=== PATIENT | female | born 1950 | race Caucasian/White ===

== ENCOUNTER → 2016-11-22 | Outpatient (CLI) | payer OTHER, BC ==
[~2016-11-22] MED LIST: GLC850 PO; GLIM1TAB2 PO; KLN1 PO; LPT40 PO; PIOG1TAB23 PO; ROPI0.25 PO; SERT1TAB92 PO; [UNRECOGNIZED DRUG - OTHER] TOP
[2016-11-22 18:06] LABS: CHLORIDE 103 mmol/L (98-107); SODIUM 140 mmol/L (136-145)
[2016-11-22 18:26] LABS: RATIO 5.4 mcg/mg (0-30.0)
[2016-11-22 20:55] LABS: BLOOD UREA NITROGEN 16 mg/dl (7-18); CARBON DIOXIDE 26 mmol/L (21-32); CREATININE 0.92 mg/dl (0.60-1.20); GLUCOSE 200 mg/dl (70-99)
[2016-11-22 22:02] LABS: CALCIUM 9.8 mg/dl (8.5-10.1)
[2016-11-23 05:36] LABS: ESTIMATED AVERAGE GLUCOSE 183 mg/dl; HA1C FLAG Normal (Normal)
== END | disposition home or self-care (01) ==
LOC: C.LABMFLN 14:00
PROVIDERS: ATTEND Family Medicine
DX: E11.9 Type 2 diabetes mellitus without complications (principal)

== ENCOUNTER → 2016-11-26 | Outpatient (CLI) | payer OTHER, BC ==
--- NOTE | 2016-11-26 16:40 | MAMMOGRAPHY REPORT ---
BILATERAL DIGITAL SCREENING MAMMOGRAM WITH CAD: 11/26/2016 CLINICAL HISTORY: Routine screening. Patient has no complaints. TECHNIQUE: Bilateral CC and MLO views were obtained. Current study was also evaluated with a Compu ter Aided Detection (CAD) system. COMPARISON: Comparison is made to exams dated: 11/25/2014 mammogram - [facility], 03/08/2013 mammogram, 09/20/2011 mammogram, and 03/23/2009 mammogram - [facility] [place]. BREAST COMPOSITION: The tissue of both breasts is heterogeneously dense, which may obscure small ma sses. FINDINGS: There is a stable 14 mm circumscribed mass in the 9:00 anterior right breast, and a stable 7 mm circumscribed mass in the 7:00 middle one third of the left breast. Scattered bilateral benig n-appearing calcifications. No new suspicious mass, architectural distortion or cluster of microcal cifications is seen. IMPRESSION: ACR BI-RADS CATEGORY 1: NEGATIVE There is no mammographic evidence of malignancy. A 1 year screening mammogram is recommended. The p atient will receive written notification of the results. Approximately 10% of breast cancers are not detected with mammography. A negative mammographic repor t should not delay biopsy if a clinically suggestive mass is present. Yohana Matias M.D. ay/:11/26/2016 15:18:30 Data Integrity Specialist: Carmelita LEMON)(Amari), [facility] letter sent: Normal 1/2 BI-RADS Code: ACR BI-RADS Category 1: Negative
== END | disposition home or self-care (01) ==
LOC: C.MAMM 12:57
PROVIDERS: ATTEND Family Medicine
DX: Z12.31 Encounter for screening mammogram for malignant neoplasm of breast (principal)

== ENCOUNTER → 2017-02-17 | Outpatient (CLI) | payer OTHER, BC ==
[~2017-02-17] VITALS: Ht 167.6 cm; Wt 97.7 kg
[2017-02-17 15:04] VITALS: BP 133/75; PULSE 91; Ht 167.6 cm; Wt 97.7 kg
== END | disposition home or self-care (01) ==
LOC: C.NEUR 13:48
PROVIDERS: ATTEND Physician Assistant
DX: G47.33 Obstructive sleep apnea (adult) (pediatric) (principal)

== ENCOUNTER 2017-07-31 20:48 | Observation (INO) | payer OTHER, BC ==
[~2017-07-31] VITALS: Ht 167.6 cm; Wt 100.5 kg
[2017-07-31] MEDS ORDERED: KLN1X PO (22:25)
[2017-07-31] MEDS ORDERED: ZLF/100 PO (22:25)
[2017-07-31] MEDS ORDERED: MULT-513 PO (22:25)
[2017-07-31] MEDS ORDERED: OMEG10007 PO (22:25)
[2017-07-31] MEDS ORDERED: AMR2 PO (22:25)
[2017-07-31] MEDS ORDERED: GLIM2TAB2 PO (22:26)
[2017-07-31 22:49] LABS: BASO % 0.5 %; BASO ABS # 0.05 K/uL (0-0.2); EOS % 0.8 %; EOS ABS # 0.08 K/uL (0-0.5); HEMATOCRIT 38.6 % (37-47); HEMOGLOBIN 12.9 g/dL (12.0-16.0); IG# 0.02 K/uL (0.00-0.02); LYMPH % 17.2 %; LYMPH ABS # 1.68 K/uL (1.2-3.4); MEAN CELL VOLUME 88.5 fL (80-100); MEAN CORPUSCULAR HEMOGLOBIN 29.6 pg (25-34); MEAN CORPUSCULAR HGB CONC 33.4 g/dl (32-36); MEAN PLATELET VOLUME 8.7 fL (7.4-10.4); MONO % 5.9 %; MONO ABS # 0.58 K/uL (0.11-0.59); NEUT % 75.4 %; NEUT ABS # 7.38 K/uL (1.4-6.5); PLATELET COUNT 198 K/uL (130-400); RED CELL DISTRIBUTION WIDTH CV 13.9 % (11.5-14.5); RED CELL DISTRIBUTION WIDTH SD 45.2 fL (36.4-46.3); WHITE BLOOD COUNT 9.79 K/uL (4.8-10.8)
[2017-07-31 23:09] LABS: ALBUMIN 3.9 gm/dl (3.4-5.0); ALT/SGPT 40 U/L (12-78); BLOOD UREA NITROGEN 16 mg/dl (7-18); CALCIUM 9.4 mg/dl (8.5-10.1); CARBON DIOXIDE 27 mmol/L (21-32); CREATININE 0.84 mg/dl (0.60-1.20); GLUCOSE 221 mg/dl (70-99); POTASSIUM 3.6 mmol/L (3.5-5.1); SODIUM 137 mmol/L (136-145)
--- NOTE | 2017-07-31 23:09 | EMERGENCY ROOM VISIT NOTE ---
ED Visit Note First contact with patient: 21:57 I have seen and examined this patient with Jie Templeton and generally agree with the treatment plan as discussed. Problem List Medical Problems: (1) Depression Status: Chronic (2) Diabetes Status: Chronic Surgical Problems: (1) H/O arthroscopic knee surgery Status: Resolved Current/Historical Medications Scheduled Atorvastatin (Lipitor), 40 MG PO QPM Fish Oil ([place]-3), 1 CAP PO DAILY Glimepiride (Glimepiride), 2 MG PO QAM Metformin HCl (Metformin HCl), 850 MG PO BID Multivitamins/Minerals (Mvi With Minerals), 1 TAB PO DAILY Pioglitazone Hcl (Pioglitazone Hcl), 30 MG PO QAM Ropinirole (Requip), 0.25 MG PO HS Sertraline HCl (Sertraline HCl), 150 MG PO DAILY Scheduled PRN Clonazepam (Clonazepam), 1 MG PO BID PRN for Anxiety Allergies Coded Allergies: Adhesives (Unverified Adverse Reaction, Intermediate, RASH, 01/13/14) 'SENSITIVE SKIN' Vital Signs Date Time Temp Pulse Resp B/P (MAP) Pulse Ox O2 Delivery O2 Flow Rate FiO2 07/31/17 22:45 87 07/31/17 22:17 97 Nasal Cannula 2.0 07/31/17 22:17 97 Nasal Cannula 2.0 07/31/17 21:58 92 16 121/70 96 Room Air 07/31/17 20:54 36.7 86 22 119/87 93 Room Air Laboratory Results 07/31/17 22:35 Red Blood Count 4.36, Mean Corpuscular Volume 88.5, Mean Corpuscular Hemoglobin 29.6, Mean Corpuscular Hemoglobin Concent 33.4, Mean Platelet Volume 8.7, Neutrophils (%) (Auto) 75.4, Lymphocytes (%) (Auto) 17.2, Monocytes (%) (Auto) 5.9, Eosinophils (%) (Auto) 0.8, Basophils (%) (Auto) 0.5, Neutrophils # (Auto) 7.38, Lymphocytes # (Auto) 1.68, Monocytes # (Auto) 0.58, Eosinophils # (Auto) 0.08, Basophils # (Auto) 0.05 Test 07/31/17 22:02 07/31/17 22:15 07/31/17 22:35 07/31/17 22:43 Creatine Kinase MB Ratio (0-3.0) Urine Color YELLOW Urine Appearance CLEAR (CLEAR) Urine pH 5.0 (4.5-7.5) Urine Specific [place] 1.024 (1.000-1.030) Urine Protein NEG (NEG) Urine Glucose (UA) 2+ (NEG) Urine Ketones TRACE (NEG) Urine Occult Blood NEG (NEG) Urine Nitrite NEG (NEG) Urine Bilirubin NEG (NEG) Urine Urobilinogen NEG (NEG) Urine Leukocyte Esterase TRACE (NEG) Urine WBC (Auto) 1-5 /hpf (0-5) Urine RBC (Auto) 0-4 /hpf (0-4) Urine Hyaline Casts (Auto) 1-5 /lpf (0-5) Urine Epithelial Cells (Auto) 20-30 /lpf (0-5) Urine Bacteria (Auto) NEG (NEG) White Blood Count 9.79 K/uL (4.8-10.8) Red Blood Count 4.36 M/uL (4.2-5.4) Hemoglobin 12.9 g/dL (12.0-16.0) Hematocrit 38.6 % (37-47) Mean Corpuscular Volume 88.5 fL (80-100) Mean Corpuscular Hemoglobin 29.6 pg (25-34) Mean Corpuscular Hemoglobin Concent 33.4 g/dl (32-36) Platelet Count 198 K/uL (130-400) Mean Platelet Volume 8.7 fL (7.4-10.4) Neutrophils (%) (Auto) 75.4 % Lymphocytes (%) (Auto) 17.2 % Monocytes (%) (Auto) 5.9 % Eosinophils (%) (Auto) 0.8 % Basophils (%) (Auto) 0.5 % Neutrophils # (Auto) 7.38 K/uL (1.4-6.5) Lymphocytes # (Auto) 1.68 K/uL (1.2-3.4) Monocytes # (Auto) 0.58 K/uL (0.11-0.59) Eosinophils # (Auto) 0.08 K/uL (0-0.5) Basophils # (Auto) 0.05 K/uL (0-0.2) RDW Standard Deviation 45.2 fL (36.4-46.3) RDW Coefficient of Variation 13.9 % (11.5-14.5) Immature Granulocyte % (Auto) 0.2 % Immature Granulocyte # (Auto) 0.02 K/uL (0.00-0.02) Bedside Troponin I < 0.030 ng/ml (0-0.045) Departure Information Referrals Ebony Barbosa M.D. (PCP) Patient Instructions My [facility]
[2017-07-31 23:14] LABS: ALKALINE PHOSPHATASE 97 U/L (45-117); AST/SGOT 39 U/L (15-37); CKMB 1.3 ng/ml (0.5-3.6); TOTAL PROTEIN 7.3 gm/dl (6.4-8.2)
[2017-07-31] MEDS ORDERED: MAGNESIUM SULFATE 1GM / D5W 1 GM BAG IV STA (23:33)
[2017-08-01] MEDS ORDERED: KETOROLAC TROMETHAMINE 30 MG/ML VIAL IV STA (00:11)
[2017-08-01] MEDS ORDERED: GABAPENTIN 300 MG CAP PO ONE (01:10)
[2017-08-01] MEDS ORDERED: ACETAMINOPHEN 325 MG TAB PO PRN (01:15)
[2017-08-01] MEDS ORDERED: MAGNESIUM HYDROXIDE SUSP 30 ML UDC PO PRN (01:15)
[2017-08-01] MEDS ORDERED: POLYETHYLENE (MIRALAX) 17 GM PACK PO PRN (01:15)
[2017-08-01] MEDS ORDERED: ALUMINUM/MAGNESIUM/SIMETH (MAALOX MAX) 30 ML UDC PO PRN (01:15)
[2017-08-01] MEDS ORDERED: ONDANSETRON INJ 2 MG/ML 2 ML VIAL IV PRN (01:15)
[2017-08-01] MEDS ORDERED: GLUCOSE 10 TABS/TUBE PO PRN (01:30)
[2017-08-01] MEDS ORDERED: GLUCOSE 40% GEL 15 GM TUBE PO PRN (01:30)
[2017-08-01] MEDS ORDERED: DEXTROSE 50% 50 ML SYR IV PRN (01:30)
[2017-08-01] MEDS ORDERED: GLUCAGON FOR INJ 1 MG VIAL SQ PRN (01:30)
--- NOTE | 2017-08-01 03:35 | EMERGENCY ROOM VISIT NOTE ---
History First contact with patient: 21:57 Chief Complaint: BACK PAIN Stated Complaint: FALL/ R HIP PAIN History of Present Illness The patient is a 67 year old female who presents to the Emergency Room with complaints of low back pain that radiates down her leg behind her thigh and down to her foot after she slipped and fell in the kitchen. Patient states she feels quite weak. Patient states she slipped and fell. Patient complains of generalized weakness and inability to walk. No prior fracture to this hip. Patient denies chest pain, dyspnea, fever, chills, headache, neck pain, mid back pain, numbness, tingling. Patient states she is unable to ambulate. She describes the pain as aching, ranging in severity 8 out of 10 worse with movement and better with rest. EMS gave fentanyl 200 g IV Review of Systems See HPI for pertinent positives & negatives. A total of 10 systems reviewed and were otherwise negative. Past Medical/Surgical History Medical Problems: (1) Ambulatory dysfunction (2) Depression (3) Diabetes (4) Radiculopathy Surgical Problems: (1) H/O arthroscopic knee surgery Family History Cancer Diabetes mellitus Heart disease Hypertension Social History Smoking Status: Never Smoker Marital Status: Housing Status: lives with significant other Occupation Status: unemployed Current/Historical Medications Scheduled Atorvastatin (Lipitor), 40 MG PO QPM Fish Oil ([place]-3), 1 CAP PO DAILY Glimepiride (Glimepiride), 2 MG PO QAM Metformin HCl (Metformin HCl), 850 MG PO BID Multivitamins/Minerals (Mvi With Minerals), 1 TAB PO DAILY Pioglitazone Hcl (Pioglitazone Hcl), 30 MG PO QAM Ropinirole (Requip), 0.25 MG PO HS Sertraline HCl (Sertraline HCl), 150 MG PO DAILY Scheduled PRN Clonazepam (Clonazepam), 1 MG PO BID PRN for Anxiety Physical Exam Vital Signs Date Time Temp Pulse Resp B/P (MAP) Pulse Ox O2 Delivery O2 Flow Rate FiO2 08/01/17 02:25 77 16 139/66 98 08/01/17 01:28 84 15 137/74 96 Room Air 07/31/17 23:14 90 16 120/93 96 Nasal Cannula 2.0 07/31/17 22:45 87 07/31/17 22:17 97 Nasal Cannula 2.0 07/31/17 22:17 97 Nasal Cannula 2.0 07/31/17 21:58 92 16 121/70 96 Room Air 07/31/17 20:54 36.7 86 22 119/87 93 Room Air Physical Exam PHYSICAL EXAM: VITALS: Vitals are noted on the nurse's note and reviewed by myself. Vital signs stable. GENERAL: Pleasant female, in no acute distress, nondiaphoretic, well-developed well-nourished. SKIN: The skin was without obvious lacerations or abrasions. Capillary reflex less than 2 seconds. HEAD: Normocephalic atraumatic. EARS: External auditory canals clear, tympanic membranes pearly lovell without erythema or effusion bilaterally. No hemotympanums. No thornton sign. No mastoid tenderness. EYES: Pupils equal round and reactive to light and accommodation. Conjunctivae without injection, sclerae without icterus. Extraocular movements intact. NOSE: Patent, turbinates without inflammation or discharge. No sinus tenderness. No septal hematoma or bleeding. MOUTH: Mucous membranes moist. Pharynx without erythema or exudate. Uvula midline. Airway patent. Tongue does not deviate. NECK: Supple without nuchal rigidity. Cervical spine is nontender. Full range of motion of the neck without tenderness. No JVD. HEART: Regular rate and rhythm without murmurs gallops or rubs. LUNGS: Clear to auscultation bilaterally without wheezes, rales or rhonchi. No dullness to percussion. No retractions or accessory muscle use. No chest wall tenderness. ABDOMEN: Positive bowel sounds x 4. Normal tympanic percussion. Soft, nontender, without masses or organomegaly. No guarding or rebound tenderness. MUSCULOSKELETAL: No tenderness of the thoracic spine. Tender to palpation of the lumbar region. No tenderness with pelvic rocking. Full range of motion without tenderness to palpation in all extremities positive straight leg raise on the right. Strength 5/5 throughout. Right hamstring tender to palpation. NEURO: Patient was alert and oriented to person place and time. Normal sensation to light and sharp touch. +2 patellar reflexes bilaterally Cerebellar function intact. No focal neurological deficits. Medical Decision & Procedures Laboratory Results 07/31/17 22:35 Red Blood Count 4.36, Mean Corpuscular Volume 88.5, Mean Corpuscular Hemoglobin 29.6, Mean Corpuscular Hemoglobin Concent 33.4, Mean Platelet Volume 8.7, Neutrophils (%) (Auto) 75.4, Lymphocytes (%) (Auto) 17.2, Monocytes (%) (Auto) 5.9, Eosinophils (%) (Auto) 0.8, Basophils (%) (Auto) 0.5, Neutrophils # (Auto) 7.38, Lymphocytes # (Auto) 1.68, Monocytes # (Auto) 0.58, Eosinophils # (Auto) 0.08, Basophils # (Auto) 0.05 07/31/17 22:35 Test 07/31/17 22:15 07/31/17 22:35 07/31/17 22:43 Urine Color YELLOW Urine Appearance CLEAR (CLEAR) Urine pH 5.0 (4.5-7.5) Urine Specific [place] 1.024 (1.000-1.030) Urine Protein NEG (NEG) Urine Glucose (UA) 2+ (NEG) Urine Ketones TRACE (NEG) Urine Occult Blood NEG (NEG) Urine Nitrite NEG (NEG) Urine Bilirubin NEG (NEG) Urine Urobilinogen NEG (NEG) Urine Leukocyte Esterase TRACE (NEG) Urine WBC (Auto) 1-5 /hpf (0-5) Urine RBC (Auto) 0-4 /hpf (0-4) Urine Hyaline Casts (Auto) 1-5 /lpf (0-5) Urine Epithelial Cells (Auto) 20-30 /lpf (0-5) Urine Bacteria (Auto) NEG (NEG) White Blood Count 9.79 K/uL (4.8-10.8) Red Blood Count 4.36 M/uL (4.2-5.4) Hemoglobin 12.9 g/dL (12.0-16.0) Hematocrit 38.6 % (37-47) Mean Corpuscular Volume 88.5 fL (80-100) Mean Corpuscular Hemoglobin 29.6 pg (25-34) Mean Corpuscular Hemoglobin Concent 33.4 g/dl (32-36) Platelet Count 198 K/uL (130-400) Mean Platelet Volume 8.7 fL (7.4-10.4) Neutrophils (%) (Auto) 75.4 % Lymphocytes (%) (Auto) 17.2 % Monocytes (%) (Auto) 5.9 % Eosinophils (%) (Auto) 0.8 % Basophils (%) (Auto) 0.5 % Neutrophils # (Auto) 7.38 K/uL (1.4-6.5) Lymphocytes # (Auto) 1.68 K/uL (1.2-3.4) Monocytes # (Auto) 0.58 K/uL (0.11-0.59) Eosinophils # (Auto) 0.08 K/uL (0-0.5) Basophils # (Auto) 0.05 K/uL (0-0.2) RDW Standard Deviation 45.2 fL (36.4-46.3) RDW Coefficient of Variation 13.9 % (11.5-14.5) Immature Granulocyte % (Auto) 0.2 % Immature Granulocyte # (Auto) 0.02 K/uL (0.00-0.02) Anion Gap 6.0 mmol/L (3-11) Est Creatinine Clear Calc Drug Dose 77.1 ml/min Estimated GFR () 82.8 Estimated GFR (Non- 71.4 BUN/Creatinine Ratio 19.4 (10-20) Calcium Level 9.4 mg/dl (8.5-10.1) Magnesium Level 1.6 mg/dl (1.8-2.4) Total Bilirubin 0.7 mg/dl (0.2-1) Direct Bilirubin 0.2 mg/dl (0-0.2) Aspartate Amino Transf (AST/SGOT) 39 U/L (15-37) Alanine Aminotransferase (ALT/SGPT) 40 U/L (12-78) Alkaline Phosphatase 97 U/L (45-117) Total Creatine Kinase 140 U/L (26-192) Creatine Kinase MB 1.3 ng/ml (0.5-3.6) Creatine Kinase MB Ratio 0.9 (0-3.0) Troponin I < 0.015 ng/ml (0-0.045) Total Protein 7.3 gm/dl (6.4-8.2) Albumin 3.9 gm/dl (3.4-5.0) Bedside Troponin I < 0.030 ng/ml (0-0.045) Medications Administered Medications (Trade) Dose Ordered Sig/Deb Route Start Time Stop Time Status Last Admin Dose Admin Magnesium Sulfate (Magnesium Sulfate) 2 gm NOW STAT IV 07/31/17 23:33 07/31/17 23:34 DC 07/31/17 23:47 2 GM Ketorolac Tromethamine (Toradol Inj) 30 mg NOW STAT IV 08/01/17 00:11 08/01/17 00:13 DC 08/01/17 00:19 30 MG ED Course Prior records/ancillary studies reviewed. Triage Nursing notes reviewed. Additional history obtained from family The patient's history was concerning for back pain. Differential diagnosis: Etiologies such as musculoskeletal, disc herniation, fracture, aortic disease, metastatic disease, cord compression, discitis, infection, renal colic, gastrointestinal, acute exacerbation of chronic back pain, sciatica, cauda equina, as well as others were entertained. Physical findings: As above. Patient is unable to bear weight on the leg ER treatment provided: Toradol On reassessment the patient felt better. Diagnostics interpreted by me: EKG: Normal sinus, normal intervals, no acute ST-T wave changes. Impression normal sinus rhythm interpreted by myself The labs revealed hyperglycemia without DKA Imaging studies: Head CT negative for intracranial bleed per radiology C and L-spine negative for fracture per radiology Consultation: A consultation was placed with [facility], Dr. Karimi. The case was discussed and diagnostics were reviewed. Patient will be evaluated for further evaluation and treatment. This appears to be consistent with intractable low back pain. Patient no acute fracture on CT imaging. Patient was still in severe amount of pain. She was unable to ambulate. She has a history of opiate abuse and does not want narcotics. She will be evaluated by medicine for possible admission. By the evaluation outlined above emergent etiologies such as fracture, aortic disease, metastatic disease, infection, renal colic, gastrointestinal, cord compression, cauda equina, as well as others were deemed relatively unlikely. The pt informed about the findings as listed above. All questions were answered and pleased with the treatment. Case reviewed with my attending Medical Decision as above Medication Reconcilliation Current Medication List: was personally reviewed by me Blood Pressure Screening Patient's blood pressure: Normal blood pressure Impression Primary Impression: Intractable low back pain Additional Impressions: Fall Hyperglycemia Departure Information Dispostion Being Evaluated By Hospitalist Condition GOOD Referrals Ebony Barbosa M.D. (PCP) Patient Instructions My [facility] Problem Qualifiers
[2017-08-01 05:00] VITALS: BP 136/78; PULSE 72; TEMP 36.4; O2SAT 97; Ht 167.6 cm; Wt 100.5 kg
[2017-08-01] MEDS ORDERED: IV FLUIDS COMPLETED PRN (05:30)
--- NOTE | 2017-08-01 06:27 | History and Physical ---
History & Physical Date & Time of Service: Aug 01, 2017 at 06:25 Chief Complaint: Ambulatory Dysfunction, Radiculopathy Primary Care Physician: Ebony Barbosa M.D. History of Present Illness Source: patient, hospital records This is a 67 yo f with a h/o opioid dependence that presents to us after a mechanical fall resulting in ambulatory dysfunction. She says she was in her kitchen when her legs split and she fell onto her right bottom. Immediately she had 10/10 pain that radiated from the right buttocks to the right posterior knee. She states "its like spasming every time I try to move or walk, I can't walk." She is unable to sit up because of the pain worsening. She also noted "spiky pain that is patchy but mostly on the front of my thigh and can go down to my ankle." She has been completely unable to ambulate and the does not feel it is safe to take her home at this time. The patient is very hesitant to try a lot of medications as well for the back pain because of history of opioid dependence. Denies any numbness/ weakness in lower extremity only pain. Past Medical/Surgical History Diabetes Depression Opioid dependence OA/ DDD Family History Cancer Diabetes mellitus Heart disease Hypertension Social History Smoking Status: Never Smoker Smokeless Tobacco Use: No Alcohol Use: none Drug Use: none Marital Status: Housing status: lives with family Occupational Status: unemployed Immunizations History of Influenza Vaccine: Yes History of Tetanus Vaccine?: Yes History of Pneumococcal: No History of Hepatitis B Vaccine: No Multi-Drug Resistant Organisms History of MDRO: No Allergies Coded Allergies: Adhesives (Unverified Adverse Reaction, Intermediate, RASH, 01/13/14) 'SENSITIVE SKIN' Home Medications Scheduled Atorvastatin (Lipitor), 40 MG PO QPM Fish Oil (Elmer-3), 1 CAP PO DAILY Glimepiride (Glimepiride), 2 MG PO QAM Metformin HCl (Metformin HCl), 850 MG PO BID Multivitamins/Minerals (Mvi With Minerals), 1 TAB PO DAILY Pioglitazone Hcl (Pioglitazone Hcl), 30 MG PO QAM Ropinirole (Requip), 0.25 MG PO HS Sertraline HCl (Sertraline HCl), 150 MG PO DAILY Scheduled PRN Clonazepam (Clonazepam), 1 MG PO BID PRN for Anxiety Review of Systems Constitutional: No fever, No chills, No sweats Eyes: No worsening of vision ENT: No hearing loss Respiratory: No cough, No sputum, No wheezing, No shortness of breath, No dyspnea on exertion, No dyspnea at rest Cardiovascular: No chest pain Abdomen: No pain, No nausea, No vomiting, No diarrhea, No constipation Musculoskeletal: + joint pain, + muscle pain Genitourinary - Female: No dysuria, No hematuria Neurologic: + balance problems, No weakness, No numbness/tingling Psychiatric: + anxiety, No depression symptoms Endocrine: No fatigue Hematologic / Lymphatic: No abnormal bleeding/bruising Integumentary: No rash Physical Exam Vital Signs Date Time Temp Pulse Resp B/P (MAP) Pulse Ox O2 Delivery O2 Flow Rate FiO2 08/01/17 02:25 77 16 139/66 98 08/01/17 01:28 84 15 137/74 96 Room Air 07/31/17 23:14 90 16 120/93 96 Nasal Cannula 2.0 07/31/17 22:45 87 07/31/17 22:17 97 Nasal Cannula 2.0 07/31/17 22:17 97 Nasal Cannula 2.0 07/31/17 21:58 92 16 121/70 96 Room Air 07/31/17 20:54 36.7 86 22 119/87 93 Room Air General Appearance: + mild distress Head: normocephalic, atraumatic Eyes: normal inspection ENT: normal ENT inspection Neck: supple Respiratory/Chest: normal breath sounds, no respiratory distress, no accessory muscle use Cardiovascular: regular rate, rhythm, no murmur, normal peripheral pulses Abdomen/GI: normal bowel sounds, non tender, soft Back: normal inspection, no CVA tenderness, normal range of motion, + pertinent finding (no spinal tenderness) Extremities/Musculoskelatal: normal inspection, no calf tenderness, no pedal edema, + pertinent finding (4/5 motor strength in right leg compared to the left , neurovascularly intact bilat, sensation equal in bilat le, straight leg positive on right LE, DTR +2 on right patellar and left) Neurologic/Psych: no motor/sensory deficits, alert, normal mood/affect, normal reflexes, oriented x 3 Skin: normal color, warm/dry, no rash Lymphatic: no adenopathy Diagnostics Laboratory Results Results Past 24 Hours Test 07/31/17 22:15 07/31/17 22:35 1/25/18 22:43 Range/Units Urine Color YELLOW Urine Appearance CLEAR CLEAR Urine pH 5.0 4.5-7.5 Urine Specific [place] 1.024 1.000-1.030 Urine Protein NEG NEG Urine Glucose (UA) 2+ NEG Urine Ketones TRACE NEG Urine Occult Blood NEG NEG Urine Nitrite NEG NEG Urine Bilirubin NEG NEG Urine Urobilinogen NEG NEG Urine Leukocyte Esterase TRACE NEG Urine WBC (Auto) 1-5 0-5 /hpf Urine RBC (Auto) 0-4 0-4 /hpf Urine Hyaline Casts (Auto) 1-5 0-5 /lpf Urine Epithelial Cells (Auto) 20-30 0-5 /lpf Urine Bacteria (Auto) NEG NEG White Blood Count 9.79 4.8-10.8 K/uL Red Blood Count 4.36 4.2-5.4 M/uL Hemoglobin 12.9 12.0-16.0 g/dL Hematocrit 38.6 37-47 % Mean Corpuscular Volume 88.5 80-100 fL Mean Corpuscular Hemoglobin 29.6 25-34 pg Mean Corpuscular Hemoglobin Concent 33.4 32-36 g/dl Platelet Count 198 130-400 K/uL Mean Platelet Volume 8.7 7.4-10.4 fL Neutrophils (%) (Auto) 75.4 % Lymphocytes (%) (Auto) 17.2 % Monocytes (%) (Auto) 5.9 % Eosinophils (%) (Auto) 0.8 % Basophils (%) (Auto) 0.5 % Neutrophils # (Auto) 7.38 1.4-6.5 K/uL Lymphocytes # (Auto) 1.68 1.2-3.4 K/uL Monocytes # (Auto) 0.58 0.11-0.59 K/uL Eosinophils # (Auto) 0.08 0-0.5 K/uL Basophils # (Auto) 0.05 0-0.2 K/uL RDW Standard Deviation 45.2 36.4-46.3 fL RDW Coefficient of Variation 13.9 11.5-14.5 % Immature Granulocyte % (Auto) 0.2 % Immature Granulocyte # (Auto) 0.02 0.00-0.02 K/uL Sodium Level 137 136-145 mmol/L Potassium Level 3.6 3.5-5.1 mmol/L Chloride Level 104 98-107 mmol/L Carbon Dioxide Level 27 21-32 mmol/L Anion Gap 6.0 3-11 mmol/L Blood Urea Nitrogen 16 7-18 mg/dl Creatinine 0.84 0.60-1.20 mg/dl Est Creatinine Clear Calc Drug Dose 77.1 ml/min Estimated GFR () 82.8 Estimated GFR (Non- 71.4 BUN/Creatinine Ratio 19.4 10-20 Random Glucose 221 70-99 mg/dl Calcium Level 9.4 8.5-10.1 mg/dl Magnesium Level 1.6 1.8-2.4 mg/dl Total Bilirubin 0.7 0.2-1 mg/dl Direct Bilirubin 0.2 0-0.2 mg/dl Aspartate Amino Transf (AST/SGOT) 39 15-37 U/L Alanine Aminotransferase (ALT/SGPT) 40 12-78 U/L Alkaline Phosphatase 97 45-117 U/L Total Creatine Kinase 140 26-192 U/L Creatine Kinase MB 1.3 0.5-3.6 ng/ml Creatine Kinase MB Ratio 0.9 0-3.0 Troponin I < 0.015 0-0.045 ng/ml Total Protein 7.3 6.4-8.2 gm/dl Albumin 3.9 3.4-5.0 gm/dl Bedside Troponin I < 0.030 0-0.045 ng/ml Diagnostic Radiology CT SCAN OF THE CERVICAL SPINE CLINICAL HISTORY: Fall. COMPARISON STUDY: No priors. TECHNIQUE: CT scan of the cervical spine is performed from the skull base to the upper thoracic spine. Images are reviewed in the axial, sagittal, and coronal planes. IV contrast was not administered for this examination. A dose lowering technique was utilized adhering to the principles of ALARA. CT DOSE: 1080.86 mGy.cm FINDINGS: Skeletal structures: The skeletal structures are osteopenic. There is no evidence of fracture or subluxation involving the cervical spine. Vertebral body height is maintained. There is minimal anterolisthesis at C3-C4 and C4-C5. Alignment is otherwise preserved. There is straightening of the cervical lordosis with mild reversal centered at C4-C5. Anterior osteophytes are seen in the lower cervical region. There is bony fusion of the posterior elements on the left at C2-C3. The odontoid process and lateral masses are intact. The atlantoaxial articulation is preserved noting productive degenerative change. The spinous processes appear intact. There is moderate multilevel cervical spondylosis. Uncovertebral and facet arthropathy contribute to neural foraminal narrowing at several levels. Postoperative change is noted in the left mandibular condyle. Intervertebral discs: There is moderate to advanced disc space narrowing at C5-C6 and C6-C7. Mild narrowing is seen at the remaining cervical levels. Central canal: Posterior disc osteophyte complexes at C5-C6 and C6-C7 likely contribute to acquired compromise the central canal. Soft tissues: The prevertebral and paraspinous soft tissues are within normal limits. Calvarium: The visualized calvarium at the skull base appears intact. Brain parenchyma: Partially visualized brain parenchyma the skull base is within normal limits. Sinuses and mastoids: Fluid is noted within the sphenoid sinuses. The maxillary antra are clear as imaged. The mastoid air cells are well pneumatized. Lung apices: Clear as visualized. IMPRESSION: 1. There is no evidence of fracture or subluxation involving the cervical spine. 2. Osteopenia and spondylotic change as above. [~ rep ct add3]] LUMBAR SPINE WITHOUT CLINICAL HISTORY: Fall. Low back pain radiating to right lower extremity. COMPARISON STUDY: No previous studies for comparison. FINDINGS: Alignment of the lumbar spine is anatomic. There is mild loss of height of the anterior aspect of the superior endplates of L2, L3 and L4 which is chronic. No acute fractures identified. Paravertebral soft tissues are unremarkable. Central canal and neural foramen are suboptimally assessed by CT. There are multilevel disc bulges with ligamentous hypertrophy and facet arthrosis. There is no severe central canal stenosis. There is suspected mild to moderate multilevel central canal stenosis as well as neural foraminal stenosis. IMPRESSION: 1. No acute lumbar spine fracture or subluxation. 2. Mild loss of height of the anterior superior endplates of L2, L3 and L4 which is chronic. 3. [id number] multilevel degenerative disc disease and facet arthrosis, as described above. Multilevel disc bulges with suspected central disc protrusions. EKG Normal sinus rhythm Normal ECG When compared with ECG of 27-DEC-2013 12:25, No significant change was found HR 87 Impression Assessment and Plan This is a 67 yo f that presents to us with radicular pain and ambulatory dysfunction in the presence of DDD and a recent mechanical fall Radiculopathy secondary to DDD and recent fall resulting in ambulatory dysfunction - med surg admission - pain control with alternative agents such as tylenol or Toradol - trial of Gabapentin however patient refused - Baclofen tid - pt/ot - considered steroids however patient hyperglycemic at time of assessment, based on reassessment in am could be reconsidered - no acute reason for MRI at this time, will defer to day team during patient's reassessment DMII - insulin ISS - metformin held - glimepiride and pioglitazone cont'd H/o Opioid dependence - avoidance of narcotics for pain control Anxiety - clonazepam and sertraline cont'd DVT Prophylaxis scd full code Attending addendum: I have physically seen this patient, have supervised the medical residents activities, and agree with the H&P unless as otherwise noted. Assessment and Plan: Right lower extremity radiculopathy/lumbar degenerative disc disease/ambulatory dysfunction-- Observe on medical surgical floor Pain management with Tylenol orally and or Toradol IV Baclofen 10 mg by mouth 3 times a day when necessary muscle spasm Patient refused trial of gabapentin at bedtime Consult PT/OT/social work administrator With history of opioid dependence, patient is not to receive narcotics for this type of pain. K- Pad to use when necessary Diabetes mellitus-- Hold metformin and pioglitazone Continue glimepiride Place on Accu-Cheks before meals and at bedtime with NovoLog coverage per scale Anxiety-- Continue clonazepam and sertraline. Level of Care Med/Surg Advanced Directives Existing Advance Directive: No Existing Living Will: No Existing Power of Uc Architect: No Resuscitation Status FULL RESUSCITATION VTE Prophylaxis VTE Risk Assessment Done? Y/N: Yes Risk Level: Moderate Given or contraindicated: SCD's Social Service Consult None Apply Additional Copies To Ebony Barbosa M.D.
--- NOTE | 2017-08-01 06:41 | DIAGNOSTIC IMAGING REPORT ---
LUMBAR SPINE WITHOUT CLINICAL HISTORY: Fall. Low back pain radiating to right lower extremity. COMPARISON STUDY: No previous studies for comparison. FINDINGS: Alignment of the lumbar spine is anatomic. There is mild loss of height of the anterior aspect of the superior endplates of L2, L3 and L4 which is chronic. No acute fractures identified. Paravertebral soft tissues are unremarkable. Central canal and neural foramen are suboptimally assessed by CT. There are multilevel disc bulges with ligamentous hypertrophy and facet arthrosis. There is no severe central canal stenosis. There is suspected mild to moderate multilevel central canal stenosis as well as neural foraminal stenosis. IMPRESSION: 1. No acute lumbar spine fracture or subluxation. 2. Mild loss of height of the anterior superior endplates of L2, L3 and L4 which is chronic. 3. [id number] multilevel degenerative disc disease and facet arthrosis, as described above. Multilevel disc bulges with suspected central disc protrusions. Electronically signed by: Terrance Gresham M.D. 08/01/2017 6:39 AM Dictated Date/Time: 08/01/2017 6:34 AM
--- NOTE | 2017-08-01 06:59 | DIAGNOSTIC IMAGING REPORT ---
HEAD WITHOUT CONTRAST (CT) CT DOSE: HISTORY: Trauma fall TECHNIQUE: Multiaxial CT images of the head were performed without the use of intravenous contrast. A dose lowering technique was utilized adhering to the principles of ALARA. Comparison: None. Findings: The paranasal sinuses and mastoid air cells are clear. The calvarium and skull base are intact. The ventricles and sulci are within normal limits. There is no mass, hematoma, midline shift, or acute infarct. Impression: No acute intracranial abnormality. The above report was generated using voice recognition software. It may contain grammatical, syntax or spelling errors. Electronically signed by: Pavel Sepulveda M.D. 08/01/2017 6:58 AM Dictated Date/Time: 08/01/2017 6:56 AM
--- NOTE | 2017-08-01 07:12 | DIAGNOSTIC IMAGING REPORT ---
CT SCAN OF THE CERVICAL SPINE CLINICAL HISTORY: Fall. COMPARISON STUDY: No priors. TECHNIQUE: CT scan of the cervical spine is performed from the skull base to the upper thoracic spine. Images are reviewed in the axial, sagittal, and coronal planes. IV contrast was not administered for this examination. A dose lowering technique was utilized adhering to the principles of ALARA. CT DOSE: 1080.86 mGy.cm FINDINGS: Skeletal structures: The skeletal structures are osteopenic. There is no evidence of fracture or subluxation involving the cervical spine. Vertebral body height is maintained. There is minimal anterolisthesis at C3-C4 and C4-C5. Alignment is otherwise preserved. There is straightening of the cervical lordosis with mild reversal centered at C4-C5. Anterior osteophytes are seen in the lower cervical region. There is bony fusion of the posterior elements on the left at C2-C3. The odontoid process and lateral masses are intact. The atlantoaxial articulation is preserved noting productive degenerative change. The spinous processes appear intact. There is moderate multilevel cervical spondylosis. Uncovertebral and facet arthropathy contribute to neural foraminal narrowing at several levels. Postoperative change is noted in the left mandibular condyle. Intervertebral discs: There is moderate to advanced disc space narrowing at C5-C6 and C6-C7. Mild narrowing is seen at the remaining cervical levels. Central canal: Posterior disc osteophyte complexes at C5-C6 and C6-C7 likely contribute to acquired compromise the central canal. Soft tissues: The prevertebral and paraspinous soft tissues are within normal limits. Calvarium: The visualized calvarium at the skull base appears intact. Brain parenchyma: Partially visualized brain parenchyma the skull base is within normal limits. Sinuses and mastoids: Fluid is noted within the sphenoid sinuses. The maxillary antra are clear as imaged. The mastoid air cells are well pneumatized. Lung apices: Clear as visualized. IMPRESSION: 1. There is no evidence of fracture or subluxation involving the cervical spine. 2. Osteopenia and spondylotic change as above. Electronically signed by: Jason Martinez M.D. 08/01/2017 7:10 AM Dictated Date/Time: 08/01/2017 7:07 AM
--- NOTE | 2017-08-01 07:36 | DIAGNOSTIC IMAGING REPORT ---
SINGLE VIEW CHEST CLINICAL HISTORY: Fall. Weakness. FINDINGS: An AP, portable, upright chest radiograph is compared to study dated 12/27/2013. The examination is degraded by portable technique and patient rotation. The heart is mildly enlarged and there is atherosclerotic calcification of the thoracic aorta. There is mild elevation of the right hemidiaphragm and bibasilar atelectasis. No airspace consolidation is seen typical for pneumonia and there is no large pleural effusion. No pneumothorax is seen. The skeletal structures are osteopenic. The bony thorax is grossly intact. Cholecystectomy clips are noted in the right upper quadrant. IMPRESSION: Mild cardiac enlargement with no acute cardiopulmonary abnormality. Electronically signed by: Jason Martinez M.D. 08/01/2017 7:35 AM Dictated Date/Time: 08/01/2017 7:34 AM
[2017-08-01 07:40] VITALS: BP 132/81; PULSE 88; TEMP 36.7; O2SAT 96
[2017-08-01] MEDS: BACLOFEN TAB 20 MG TAB PO SCH ×3 (08:02→21:29)
[2017-08-01] MEDS: SERTRALINE HCL 100 MG TAB PO SCH (08:02)
[2017-08-01] MEDS: DICLOFENAC SOD 1% GEL 100 GM TUBE EXT SCH ×4 (08:02→21:27)
[2017-08-01] MEDS: PIOGLITAZONE TAB 15 MG TAB PO SCH (08:02)
[2017-08-01] MEDS: CEROVITE ADV FORMULA TAB PO SCH (08:03)
[2017-08-01] MEDS: GLIMEPIRIDE 2 MG TAB PO SCH (08:03)
[2017-08-01] MEDS: OMEGA-3 (PURIFIED FISH OIL) 1 GM CAP PO SCH (08:03)
[2017-08-01] MEDS: INSULIN ASPART 100 UNITS/ML 3 ML PEN SC SCH ×4 (08:06→21:36)
[2017-08-01] MEDS: KETOROLAC TROMETHAMINE 15 MG/ML VIAL IV. PRN ×2 (08:08→14:25)
[2017-08-01 12:04] VITALS: BP 127/80; PULSE 79; O2SAT 95
[2017-08-01 15:19] VITALS: BP 126/82; PULSE 79; TEMP 37.1; O2SAT 92
[2017-08-01] MEDS ORDERED: KETOROLAC TROMETHAMINE 15 MG/ML VIAL IV. SCH (18:45)
--- NOTE | 2017-08-01 18:49 | Family Medicine Progress Note ---
Progress Note Date of Service Aug 01, 2017. Subjective Pt evaluation today including: conversation w/ patient, physical exam, chart review, lab review Pain: this AM pt reports pain in R buttocks region radiating down posterior R leg PO Intake: tolerating Voiding: no voiding problems This AM pt reports being in kitchen and doing a split on wet kitchen floor after which she had difficulty walking/moving due to severe pain in her R buttocks region. Pain is described as muscle spasm like and radiating behind R thigh to knee. Also has chronic shooting pain from knee to ankle from nerves post knee surgery in 2015. Constitutional: No fever, No chills Respiratory: No shortness of breath Cardiovascular: No chest pain Abdomen: No pain, No nausea, No vomiting Musculoskeletal: + muscle pain Female : No dysuria Medications Current Inpatient Medications Medications (Trade) Dose Ordered Sig/Deb Route Start Time Stop Time Status Last Admin Dose Admin Acetaminophen (Tylenol Tab) 650 mg Q4H PRN PO 08/01/17 01:15 08/31/17 01:14 Al Hydrox/Mg Hydrox/Simethicone (Maalox Max Susp) 15 ml Q4H PRN PO 08/01/17 01:15 08/31/17 01:14 Magnesium Hydroxide (Milk Of Magnesia Susp) 30 ml Q6H PRN PO 08/01/17 01:15 08/31/17 01:14 Polyethylene (Miralax Powder Packet) 17 gm DAILY PRN PO 08/01/17 01:15 08/31/17 01:14 Ondansetron HCl (Zofran Inj) 4 mg Q6H PRN IV 08/01/17 01:15 08/31/17 01:14 Insulin Aspart (novoLOG ASPART) SLIDING SCALE G... ACHS SC 08/01/17 06:30 08/31/17 06:59 08/01/17 17:28 2 UNITS Atorvastatin Calcium (Lipitor Tab) 40 mg QPM PO 08/01/17 21:00 08/31/17 20:59 Clonazepam (Klonopin Tab) 1 mg BID PRN PO 08/01/17 01:15 08/31/17 01:14 Fish Oil ([place]-3 (Purified Fish Oil) Cap) 1 gm DAILY PO 08/01/17 09:00 08/31/17 08:59 08/01/17 08:03 1 GM Glimepiride (Amaryl Tab) 2 mg QAM PO 08/01/17 09:00 08/31/17 08:59 08/01/17 08:03 2 MG Multivitamins/ Minerals (Multivitamin W/ Minerals Tab) 1 tab DAILY PO 08/01/17 09:00 08/31/17 08:59 08/01/17 08:03 1 TAB Ropinirole HCl (Requip Tab) 0.25 mg HS PO 08/01/17 21:00 08/31/17 20:59 Sertraline HCl (Zoloft Tab) 150 mg DAILY PO 08/01/17 09:00 08/31/17 08:59 08/01/17 08:02 150 MG Pioglitazone HCl (ACTos TAB) 30 mg QAM PO 08/01/17 09:00 08/31/17 08:59 08/01/17 08:02 30 MG Gabapentin (Neurontin Cap) 300 mg HS PO 08/01/17 21:00 08/31/17 20:59 Baclofen (Lioresal Tab) 10 mg TID PO 08/01/17 09:00 08/31/17 08:59 08/01/17 14:21 10 MG Ketorolac Tromethamine (Toradol Inj) 15 mg Q6H PRN IV. 08/01/17 01:15 08/06/17 01:14 08/01/17 14:25 15 MG Glucose (Glucose 40% Gel) 15-30 GRAMS 15 GRAMS... UD PRN PO 08/01/17 01:30 08/31/17 01:29 Glucose (Glucose Chew Tab) 4-8 Tablets 4 Tabl... UD PRN PO 08/01/17 01:30 08/31/17 01:29 Dextrose (Dextrose 50% 50ML Syringe) 25-50ML OF 50% DW IV FOR... UD PRN IV 08/01/17 01:30 08/31/17 01:29 Glucagon (Glucagon Inj) 1 mg UD PRN SQ 08/01/17 01:30 08/31/17 01:29 Miscellaneous (Iv Fluids Completed) 1 ea PRN PRN N/A 08/01/17 05:30 08/01/18 05:29 Diclofenac Sodium (Voltaren 1% Top Gel) 1 appln QID EXT 08/01/17 09:00 08/31/17 08:59 08/01/17 17:28 1 APPLN Objective Vital Signs Date Time Temp Pulse Resp B/P (MAP) Pulse Ox O2 Delivery O2 Flow Rate FiO2 08/01/17 16:05 Room Air 08/01/17 15:19 37.1 79 16 126/82 (97) 92 08/01/17 12:04 79 95 08/01/17 08:30 Room Air 08/01/17 07:40 36.7 88 16 132/81 (98) 96 2.0 08/01/17 05:00 36.4 72 16 136/78 97 Room Air 08/01/17 02:25 77 16 139/66 98 08/01/17 01:28 84 15 137/74 96 Room Air 07/31/17 23:14 90 16 120/93 96 Nasal Cannula 2.0 07/31/17 22:45 87 07/31/17 22:17 97 Nasal Cannula 2.0 07/31/17 22:17 97 Nasal Cannula 2.0 07/31/17 21:58 92 16 121/70 96 Room Air 07/31/17 20:54 36.7 86 22 119/87 93 Room Air Physical Exam General Appearance: no apparent distress Eyes: normal inspection, sclerae normal Respiratory/Chest: lungs clear, normal breath sounds Cardiovascular: regular rate, rhythm, no murmur Abdomen: normal bowel sounds, non tender, soft Extremities: non-tender, normal inspection, no pedal edema Neurologic/Psychiatric: piece work checker II-XII nml as tested, no motor/sensory deficits, alert, oriented x 3, + pertinent finding (pt guarding on R LE neurologic testing but has intact sensation/strength and 2+ knee DTR) Skin: warm/dry Laboratory Results 07/31/17 22:35 Red Blood Count 4.36, Mean Corpuscular Volume 88.5, Mean Corpuscular Hemoglobin 29.6, Mean Corpuscular Hemoglobin Concent 33.4, Mean Platelet Volume 8.7, Neutrophils (%) (Auto) 75.4, Lymphocytes (%) (Auto) 17.2, Monocytes (%) (Auto) 5.9, Eosinophils (%) (Auto) 0.8, Basophils (%) (Auto) 0.5, Neutrophils # (Auto) 7.38, Lymphocytes # (Auto) 1.68, Monocytes # (Auto) 0.58, Eosinophils # (Auto) 0.08, Basophils # (Auto) 0.05 07/31/17 22:35 Test 07/31/17 22:15 07/31/17 22:35 07/31/17 22:43 08/01/17 16:26 Urine Color YELLOW Urine Appearance CLEAR (CLEAR) Urine pH 5.0 (4.5-7.5) Urine Specific [place] 1.024 (1.000-1.030) Urine Protein NEG (NEG) Urine Glucose (UA) 2+ (NEG) Urine Ketones TRACE (NEG) Urine Occult Blood NEG (NEG) Urine Nitrite NEG (NEG) Urine Bilirubin NEG (NEG) Urine Urobilinogen NEG (NEG) Urine Leukocyte Esterase TRACE (NEG) Urine WBC (Auto) 1-5 /hpf (0-5) Urine RBC (Auto) 0-4 /hpf (0-4) Urine Hyaline Casts (Auto) 1-5 /lpf (0-5) Urine Epithelial Cells (Auto) 20-30 /lpf (0-5) Urine Bacteria (Auto) NEG (NEG) White Blood Count 9.79 K/uL (4.8-10.8) Red Blood Count 4.36 M/uL (4.2-5.4) Hemoglobin 12.9 g/dL (12.0-16.0) Hematocrit 38.6 % (37-47) Mean Corpuscular Volume 88.5 fL (80-100) Mean Corpuscular Hemoglobin 29.6 pg (25-34) Mean Corpuscular Hemoglobin Concent 33.4 g/dl (32-36) Platelet Count 198 K/uL (130-400) Mean Platelet Volume 8.7 fL (7.4-10.4) Neutrophils (%) (Auto) 75.4 % Lymphocytes (%) (Auto) 17.2 % Monocytes (%) (Auto) 5.9 % Eosinophils (%) (Auto) 0.8 % Basophils (%) (Auto) 0.5 % Neutrophils # (Auto) 7.38 K/uL (1.4-6.5) Lymphocytes # (Auto) 1.68 K/uL (1.2-3.4) Monocytes # (Auto) 0.58 K/uL (0.11-0.59) Eosinophils # (Auto) 0.08 K/uL (0-0.5) Basophils # (Auto) 0.05 K/uL (0-0.2) RDW Standard Deviation 45.2 fL (36.4-46.3) RDW Coefficient of Variation 13.9 % (11.5-14.5) Immature Granulocyte % (Auto) 0.2 % Immature Granulocyte # (Auto) 0.02 K/uL (0.00-0.02) Anion Gap 6.0 mmol/L (3-11) Est Creatinine Clear Calc Drug Dose 77.1 ml/min Estimated GFR () 82.8 Estimated GFR (Non- 71.4 BUN/Creatinine Ratio 19.4 (10-20) Calcium Level 9.4 mg/dl (8.5-10.1) Magnesium Level 1.6 mg/dl (1.8-2.4) Total Bilirubin 0.7 mg/dl (0.2-1) Direct Bilirubin 0.2 mg/dl (0-0.2) Aspartate Amino Transf (AST/SGOT) 39 U/L (15-37) Alanine Aminotransferase (ALT/SGPT) 40 U/L (12-78) Alkaline Phosphatase 97 U/L (45-117) Total Creatine Kinase 140 U/L (26-192) Creatine Kinase MB 1.3 ng/ml (0.5-3.6) Creatine Kinase MB Ratio 0.9 (0-3.0) Troponin I < 0.015 ng/ml (0-0.045) Total Protein 7.3 gm/dl (6.4-8.2) Albumin 3.9 gm/dl (3.4-5.0) Bedside Troponin I < 0.030 ng/ml (0-0.045) Bedside Glucose 208 mg/dl (70-90) Assessment and Plan 67yoF with muscle spasm, ambulatory dysfunction and radicular pain 2/2 mechanical fall in the presence of DDD. Fall and muscle spasm in R buttocks vs. radiculopathy secondary to DDD - CT cervical spine - no fx/subluxation, osteopenia and spondylotic change - CT lumbar spine - no fx/subluxation, chronic mild-mod multi level DDD and facet arthrosis and multi level disc bulges with suspected central disc protrusion - Ct head - no acute IC abnormality - CXR mild cardiac enlargement no acute abnormality - pain control with tylenol and Toradol Q6H scheduled - Voltaren gel - Baclofen tid - pt/ot DMII - insulin ISS - metformin held - Continued glimepiride and pioglitazone H/o Opioid dependence - avoidance of narcotics for pain control Anxiety - Continue clonazepam and sertraline DVT Prophylaxis scd full code Resident Physician Supervision Note: I interviewed and examined the patient. Discussed with Dr. Marte and agree with findings and plan as documented in the note. Any exceptions or clarifications are listed here: None Documented By: Benjamin Lillyur back pain and spasms, goes down R leg as well, fell in kitchen. dtr brought her a gymnastics medal since she says she did a split vitals noted pleasant but periods of pain/distress when back spasms ensue. ost/msk - R sided piriformis / deep pelvic muscles high tone/tender/decreased ROM - attempted post-isometric relaxation - too painful - LAS - improved some, pt tolerated well back pain - appearing fall-induced spasms - med management as above somatic dysfunction pelvis - OMT as above Resident Involvement: Resident Care Provided Care Provided: Adult Hospital Medicine
[2017-08-01] MEDS: ROPINIROLE HCL 0.25 MG TAB PO SCH (21:28)
[2017-08-01] MEDS: ATORVASTATIN 40 MG TAB PO SCH (21:30)
[2017-08-01] MEDS: GABAPENTIN 300 MG CAP PO SCH (21:30)
[2017-08-01] MEDS: MAGNESIUM OXIDE 400 MG TAB PO SCH (21:31)
[2017-08-01] MEDS: CLONAZEPAM 1 MG TAB PO PRN (21:39)
[2017-08-01 23:16] VITALS: BP 131/78; PULSE 87; TEMP 37.3; O2SAT 97
[2017-08-02] MEDS: KETOROLAC TROMETHAMINE 15 MG/ML VIAL IV. SCH ×4 (03:34→18:48)
[2017-08-02 06:34] LABS: CALCIUM 9.3 mg/dl (8.5-10.1); CREATININE 0.82 mg/dl (0.60-1.20)
[2017-08-02 07:21] VITALS: BP 120/63; PULSE 69; TEMP 36.6; O2SAT 93
[2017-08-02] MEDS: CEROVITE ADV FORMULA TAB PO SCH (08:16)
[2017-08-02] MEDS: GLIMEPIRIDE 2 MG TAB PO SCH (08:16)
[2017-08-02] MEDS: OMEGA-3 (PURIFIED FISH OIL) 1 GM CAP PO SCH (08:17)
[2017-08-02] MEDS: BACLOFEN TAB 20 MG TAB PO SCH ×3 (08:17→21:23)
[2017-08-02] MEDS: MAGNESIUM OXIDE 400 MG TAB PO SCH ×2 (08:17→21:25)
[2017-08-02] MEDS: SERTRALINE HCL 100 MG TAB PO SCH (08:17)
[2017-08-02] MEDS: PIOGLITAZONE TAB 15 MG TAB PO SCH (08:18)
[2017-08-02] MEDS: DICLOFENAC SOD 1% GEL 100 GM TUBE EXT SCH ×4 (08:19→21:23)
[2017-08-02] MEDS: INSULIN ASPART 100 UNITS/ML 3 ML PEN SC SCH ×4 (08:31→21:29)
[2017-08-02 09:05] LABS: HEMOGLOBIN A1C 9.2 % (4.5-5.6)
--- NOTE | 2017-08-02 14:24 | Family Medicine Progress Note ---
Progress Note Date of Service Aug 02, 2017. Subjective Pt evaluation today including: conversation w/ patient, physical exam, chart review, lab review, review of studies 67 yo female post fall, with piriformis muscle spasms. Reports decreased pain today. Says that the pain comes in waves 8/10 at the peak of a spasm. Patient has increased ambulation since yesterday with the assistance of a walker. Patient reports feeling fatigued and was falling asleep multiple times during the interview. She is alert and oriented x3. Constitutional: No fever, No chills Respiratory: No cough, No sputum Cardiovascular: No chest pain, No palpitations Abdomen: No pain, No nausea, No vomiting, No diarrhea Female : No dysuria Medications Current Inpatient Medications Medications (Trade) Dose Ordered Sig/Deb Route Start Time Stop Time Status Last Admin Dose Admin Acetaminophen (Tylenol Tab) 650 mg Q4H PRN PO 08/01/17 01:15 08/31/17 01:14 Al Hydrox/Mg Hydrox/Simethicone (Maalox Max Susp) 15 ml Q4H PRN PO 08/01/17 01:15 08/31/17 01:14 Magnesium Hydroxide (Milk Of Magnesia Susp) 30 ml Q6H PRN PO 08/01/17 01:15 08/31/17 01:14 Polyethylene (Miralax Powder Packet) 17 gm DAILY PRN PO 08/01/17 01:15 08/31/17 01:14 Ondansetron HCl (Zofran Inj) 4 mg Q6H PRN IV 08/01/17 01:15 08/31/17 01:14 Insulin Aspart (novoLOG ASPART) SLIDING SCALE G... ACHS SC 08/01/17 06:30 08/31/17 06:59 08/02/17 12:12 3 UNITS Atorvastatin Calcium (Lipitor Tab) 40 mg QPM PO 08/01/17 21:00 08/31/17 20:59 08/01/17 21:30 40 MG Clonazepam (Klonopin Tab) 1 mg BID PRN PO 08/01/17 01:15 08/31/17 01:14 08/01/17 21:39 1 MG Fish Oil ([place]-3 (Purified Fish Oil) Cap) 1 gm DAILY PO 08/01/17 09:00 08/31/17 08:59 08/02/17 08:17 1 GM Glimepiride (Amaryl Tab) 2 mg QAM PO 08/01/17 09:00 08/31/17 08:59 08/02/17 08:16 2 MG Multivitamins/ Minerals (Multivitamin W/ Minerals Tab) 1 tab DAILY PO 08/01/17 09:00 08/31/17 08:59 08/02/17 08:16 1 TAB Ropinirole HCl (Requip Tab) 0.25 mg HS PO 08/01/17 21:00 08/31/17 20:59 08/01/17 21:28 0.25 MG Sertraline HCl (Zoloft Tab) 150 mg DAILY PO 08/01/17 09:00 08/31/17 08:59 08/02/17 08:17 150 MG Pioglitazone HCl (ACTos TAB) 30 mg QAM PO 08/01/17 09:00 08/31/17 08:59 08/02/17 08:18 30 MG Gabapentin (Neurontin Cap) 300 mg HS PO 08/01/17 21:00 08/31/17 20:59 08/01/17 21:30 300 MG Baclofen (Lioresal Tab) 10 mg TID PO 08/01/17 09:00 08/31/17 08:59 08/02/17 08:17 10 MG Glucose (Glucose 40% Gel) 15-30 GRAMS 15 GRAMS... UD PRN PO 08/01/17 01:30 08/31/17 01:29 Glucose (Glucose Chew Tab) 4-8 Tablets 4 Tabl... UD PRN PO 08/01/17 01:30 08/31/17 01:29 Dextrose (Dextrose 50% 50ML Syringe) 25-50ML OF 50% DW IV FOR... UD PRN IV 08/01/17 01:30 08/31/17 01:29 Glucagon (Glucagon Inj) 1 mg UD PRN SQ 08/01/17 01:30 08/31/17 01:29 Miscellaneous (Iv Fluids Completed) 1 ea PRN PRN N/A 08/01/17 05:30 08/01/18 05:29 Diclofenac Sodium (Voltaren 1% Top Gel) 1 appln QID EXT 08/01/17 09:00 08/31/17 08:59 08/02/17 12:15 1 APPLN Ketorolac Tromethamine (Toradol Inj) 15 mg Q6H IV. 08/02/17 00:45 08/06/17 01:14 08/02/17 12:19 15 MG Magnesium Oxide (Mag-Ox Tab) 400 mg BID PO 08/01/17 21:00 08/31/17 20:59 08/02/17 08:17 400 MG Objective Vital Signs Date Time Temp Pulse Resp B/P (MAP) Pulse Ox O2 Delivery O2 Flow Rate FiO2 08/02/17 08:00 Room Air 08/02/17 07:21 36.6 69 16 120/63 (82) 93 2.0 08/02/17 04:05 Room Air 08/02/17 00:05 Room Air 08/01/17 23:16 37.3 87 18 131/78 (95) 97 Nasal Cannula 2.0 08/01/17 20:05 Room Air 08/01/17 16:05 Room Air 08/01/17 15:19 37.1 79 16 126/82 (97) 92 Physical Exam General Appearance: WD/WN, no apparent distress Respiratory/Chest: chest non-tender, lungs clear, normal breath sounds, no respiratory distress Cardiovascular: regular rate, rhythm, no edema, no gallop Extremities: no pedal edema, no calf tenderness, + pertinent finding (right hip tenderness, posterior and superior to the greater trochanter of the right hip. ) Neurologic/Psychiatric: alert, normal mood/affect, oriented x 3 Skin: normal color, warm/dry, no rash Laboratory Results 08/02/17 05:21 Test 08/02/17 05:21 08/02/17 11:41 Anion Gap 6.0 mmol/L (3-11) Est Creatinine Clear Calc Drug Dose 78.5 ml/min Estimated GFR () 85.2 Estimated GFR (Non- 73.5 BUN/Creatinine Ratio 17.1 (10-20) Estimated Average Glucose 217 mg/dl Hemoglobin A1c 9.2 % (4.5-5.6) Calcium Level 9.3 mg/dl (8.5-10.1) Bedside Glucose 222 mg/dl (70-90) Assessment and Plan 67yoF with muscle spasm, ambulatory dysfunction and radicular pain 2/2 mechanical fall in the presence of DDD. 08/02--Patient pain is improving, she is able to ambulate, but she is concerned that she will have trouble walking upstairs. Will have the patient ambulate today with nursing and will attempt going upstairs. Physical therapy recommends that the patient seek therapy Fall and muscle spasm (piriformis spasms) - CT cervical spine - no fx/subluxation, osteopenia and spondylotic change - CT lumbar spine - no fx/subluxation, chronic mild-mod multi level DDD and facet arthrosis and multi level disc bulges with suspected central disc protrusion - Ct head - no acute IC abnormality - CXR mild cardiac enlargement no acute abnormality - pain control with tylenol and Toradol Q6H scheduled - Voltaren gel - Baclofen tid - pt/ot DMII - insulin ISS - metformin held - Continued glimepiride and pioglitazone H/o Opioid dependence - avoidance of narcotics for pain control Anxiety - Continue clonazepam and sertraline DVT Prophylaxis scd Resident Physician Supervision Note: I interviewed and examined the patient. Discussed with Dr. Hoffmann and agree with findings and plan as documented in the note. Any exceptions or clarifications are listed here: None Documented By: Benjamin Coles feeling better still pain but iprmoving able to walk better very worried about steps d/w later all pleased with her progress vitals noted nad breathing unlabored sitting in chair, deep buttocks soft tissue in region of piriformis high tone/tender/decreased ROM - post-isometric relaxation muscle energy - improved some and improved ROM - pt tolerated well back spasms/piriformis spasms s/p fall - improving, med management as aboev somatic dysfunction pelvis - OMT as above improving, home once able to safely navigate stairs
[2017-08-02 15:19] VITALS: BP 114/63; PULSE 72; TEMP 36.7; O2SAT 95
[2017-08-02] MEDS: GABAPENTIN 300 MG CAP PO SCH (21:23)
[2017-08-02] MEDS: ATORVASTATIN 40 MG TAB PO SCH (21:23)
[2017-08-02] MEDS: ROPINIROLE HCL 0.25 MG TAB PO SCH (21:24)
[2017-08-02] MEDS: CLONAZEPAM 1 MG TAB PO PRN (21:31)
[2017-08-02 22:51] VITALS: BP 120/66; PULSE 72; TEMP 37; O2SAT 94
[2017-08-03] MEDS: KETOROLAC TROMETHAMINE 15 MG/ML VIAL IV. SCH ×3 (00:17→12:44)
[2017-08-03 07:17] VITALS: BP 123/78; PULSE 62; TEMP 36.7; O2SAT 93
[2017-08-03] MEDS: PIOGLITAZONE TAB 15 MG TAB PO SCH (08:11)
[2017-08-03] MEDS: GLIMEPIRIDE 2 MG TAB PO SCH (08:12)
[2017-08-03] MEDS: CEROVITE ADV FORMULA TAB PO SCH (08:12)
[2017-08-03] MEDS: MAGNESIUM OXIDE 400 MG TAB PO SCH (08:13)
[2017-08-03] MEDS: OMEGA-3 (PURIFIED FISH OIL) 1 GM CAP PO SCH (08:13)
[2017-08-03] MEDS: BACLOFEN TAB 20 MG TAB PO SCH ×2 (08:13→14:05)
[2017-08-03] MEDS: SERTRALINE HCL 100 MG TAB PO SCH (08:13)
[2017-08-03] MEDS: DICLOFENAC SOD 1% GEL 100 GM TUBE EXT SCH ×2 (08:14→13:00)
[2017-08-03] MEDS: INSULIN ASPART 100 UNITS/ML 3 ML PEN SC SCH ×2 (08:19→11:53)
[2017-08-03 14:58] VITALS: BP 102/61; PULSE 75; TEMP 36.5; O2SAT 95
[2017-08-03] MEDS ORDERED: IBUP-1428 PO (16:32)
[2017-08-03] MEDS ORDERED: LRS20 PO (16:32)
[2017-08-03] MEDS ORDERED: VLTG EXT (16:32)
--- NOTE | 2017-08-03 16:35 | Discharge Instructions ---
Discharge Instructions Date of Service Aug 03, 2017. Admission Reason for Admission: Ambulatory Dysfunction, Radiculopathy Discharge Discharge Diagnosis / Problem: back pain following a fall Discharge Goals Goal(s): Diagnostic testing, Therapeutic intervention Activity Recommendations Activity Limitations: resume your previous activity (see below) . Instructions / Follow-Up Instructions / Follow-Up back pain -while there are a number of things hurting just from the bumps and bruises, the main injury that is causing the spasms is your piriformis muscle -piriformis runs from the "point of your hip" (greater trochanter) to the underside of your sacrum (tailbone) -it is the most frequent tight/spastic muscle we see in back pain - and while your mechanism of injury is different than a simple strain, the biomechanics are basically the same -this will heal with time, but to get it better faster: -stretches - do the isometric stretches we demonstrated - lay on your LEFT side with the bad leg up, towards the edge of the bed, have your push your knee towards the floor while you push up against him towards the ceiling. after about a five second contraction, relax and have him stretch your leg more by pushing your knee slightly more to the floor and a little more towards your chest -voltaren (diclofenac) gel - put the gel across your right buttock in the region of the piriformis four times a day every day -baclofen (muscle relaxant) - use this for the near future, as you're feeling better and less pain, drop down on the dosing and then stop it entirely -- it can make you groggy or slow/confused -ibuprofen (anti-inflammatory) take 800mg three times a day for now, then after you've been able to get rid of the baclofen, start to reduce and then get rid of the ibuprofen entirely. the main problem we run into with anti- inflammatories short term is upset stomach (watermaster use can lead to stomach ulcers, kidney problems and actually even heart attacks and strokes, but we never see this with short term use) -TENS - the TENS unit is a great idea - put it across the region of the piriformis, turn it up to where you feel it, and then let it run. as time progresses, it's OK to slowly turn up the dial of intensity; just don't turn it up to where it hurts -therapy - we'll be asking case management to set up home physical therapy. if they haven't contacted you by about noon tomorrow, call our office so that we can make sure that things are getting passed along -- [phone] (Juani, our central office equipment engineer, will answer and she can pass things along) the bruising will likely take several weeks to improve, but we're not seeing any findings consistent with a muscle tear - just bruising from the impact. likewise your multiple Xrays and scans when you came through the ER did not show any fractures or dislocations Current Hospital Diet Patient's current hospital diet: AHA Diet (Heart Healthy), Low Sodium Diet (2gm Na), Diabetes Type 2 Diet Discharge Diet Recommended Diet: AHA Diet (Heart Healthy), Diabetes Type 2 Diet Pending Studies Studies pending at discharge: no Laboratory Results Hemoglobin A1c Test 08/02/17 05:21 Range/Units Estimated Average Glucose 217 mg/dl Hemoglobin A1c 9.2 H 4.5-5.6 % Medical Emergencies . Who to Call and When: Medical Emergencies: If at any time you feel your situation is an emergency, please call 911 immediately. . Non-Emergent Contact Non-Emergency issues call your: Primary Care Provider . . "Provider Documentation" section prepared by Benjamin Coles. . VTE Core Measure Inpt VTE Proph given/why not?: SCD's
[2017-08-03 16:39] VITALS: BP 102/61; PULSE 75; TEMP 36.5; O2SAT 95
--- NOTE | 2017-08-03 18:33 | Discharge Summary ---
Discharge Summary Date of Service Aug 03, 2017. Discharge Summary Admission Date: Aug 01, 2017 at 01:14 Discharge Date: Aug 03, 2017 Discharge Disposition: Home Principal Diagnosis: Lower back spasm Immunizations: Have You Had Influenza Vaccine: Yes History of Tetanus Vaccine?: Yes History of Pneumococcal: No History of Hepatitis B Vaccine: No Discharge Exam Review of Systems: Constitutional: No fever, No chills Respiratory: No cough, No sputum, No shortness of breath Cardiovascular: No chest pain, No palpitations Abdomen: No pain, No nausea, No vomiting Genitourinary - Female: No dysuria Physical Exam: General Appearance: WD/WN, no apparent distress Respiratory/Chest: chest non-tender, lungs clear, normal breath sounds Cardiovascular: regular rate, rhythm, no edema, no murmur Extremities: no calf tenderness, no pedal edema, + pertinent finding (large eccymosis on posterior right LE) Neurologic/Psychiatric: alert, normal mood/affect, oriented x 3 Skin: normal color, warm/dry, no rash Hospital Course Ms. Love was admitted to [facility] after experiencing a fall on her right hip at home. In the ED, the patient was unable to ambulate. The patient was admitted and his hospital management had the following goals; rule out serious injury/ fractures, pain control and physical therapy assessment. Imaging was negative for acute fracture. Throughout course, patient c/o muscle spasms of her right lower back that hampered ambulation and caused her great discomfort. The sx delayed her discharge. Opioid medications were avoided in the patient considering PMH of dependence. The following medications gave the most benefit in the inpatient setting; gabapentin, baclofen, toradol and voltaren gel. The patient was DC'ed with instructions to take; ibuprofen 800 TID, baclofen and Voltaren gel. Physical therapy recommended that the patient be transferred to inpatient rehab due to the nature of her living situation (multiple level home) . After living quater modifications, the patient and her decided going home with home physical therapy as the best option. Of note, the patient's HgbA1C was found to be 9.2. See the problem list below for more information; Fall and muscle spasm (piriformis spasms) - CT cervical spine - no fx/subluxation, osteopenia and spondylotic change - CT lumbar spine - no fx/subluxation, chronic mild-mod multi level DDD and facet arthrosis and multi level disc bulges with suspected central disc protrusion - Ct head - no acute IC abnormality - CXR mild cardiac enlargement no acute abnormality - pain control with tylenol and Toradol Q6H scheduled - Voltaren gel - Baclofen tid - pt/ot DMII - insulin ISS - metformin held - Continued glimepiride and pioglitazone H/o Opioid dependence - avoidance of narcotics for pain control Anxiety - Continue clonazepam and sertraline DVT Prophylaxis scd Resident Physician Supervision Note: I interviewed and examined the patient. Discussed with Dr. Hoffmann and agree with findings and plan as documented in the note. Any exceptions or clarifications are listed here: None Documented By: Benjamin Coles feeling better enough to go home still having some spasms but overall pain is less rearranged things at home so she can be on one floor - both feel safe to go home vitals noted nad breathing unlabored. bruising RLE posteriorly but no hamstrings bulge/step off or crepitis ost - R sided piriformis region muscles high toen/tender/decreased ROM - muscle energy - taught as well - pt tolerated well fall/back pain/piriformis spasms/bruising -stable for home as planned by pt / -voltaren gel, baclofen, ibuprofen for now - as she improves wean baclofen then ibuprofen then voltaren gel -discussed home stretches - taught stable for home somatic dysfunction pelvic region - OMT as above Total Time Spent: Less than 30 minutes This includes examination of the patient, discharge planning, medication reconciliation, and communication with other providers. Discharge Instructions Please refer to the electronic Patient Visit Report (Discharge Instructions) for additional information. Additional Copies To Ebony Barbosa M.D.
== END 2017-08-03 17:10 | disposition home or self-care (01) ==
LOC: EDBD 20:48 → C.EDA 20:49 → C.MED 08-01 01:14 → ENRESERV 08-01 02:06
PROVIDERS: ADMIT Hospitalist; ATTEND Family Medicine
DX: M62.830 Muscle spasm of back (principal); W01.0XXA Fall on same level from slipping, tripping and stumbling without subsequent striking against object, initial encounter; Y92.010 Kitchen of single-family (private) house as the place of occurrence of the external cause; E11.9 Type 2 diabetes mellitus without complications; R26.9 Unspecified abnormalities of gait and mobility; F32.9 Major depressive disorder, single episode, unspecified; M54.10 Radiculopathy, site unspecified; Z79.4 Long term (current) use of insulin; Z83.3 Family history of diabetes mellitus; Z82.49 Family history of ischemic heart disease and other diseases of the circulatory system

== ENCOUNTER → 2017-08-21 | Outpatient (CLI) | payer OTHER, BC ==
[~2017-08-21] VITALS: Ht 167.6 cm; Wt 97.3 kg
[~2017-08-21] MED LIST changes: +AMR2 PO; -GLC850 PO; -GLIM1TAB2 PO; +IBUP-1428 PO; -KLN1 PO; +KLN1X PO; +LRS20 PO; +METF850T10 PO; +MULT-513 PO; +OMEG10007 PO; -SERT1TAB92 PO; +VLTG EXT; +ZLF/100 PO; -[UNRECOGNIZED DRUG - OTHER] TOP
[2017-08-21 14:00] VITALS: BP 132/83; PULSE 108; Ht 167.6 cm; Wt 97.3 kg
== END | disposition home or self-care (01) ==
LOC: C.NEUR 13:45
PROVIDERS: ATTEND Physician Assistant
DX: G47.33 Obstructive sleep apnea (adult) (pediatric) (principal); Z88.5 Allergy status to narcotic agent

== ENCOUNTER → 2017-09-17 | Outpatient (CLI) | payer OTHER, BC ==
[~2017-09-17] MED LIST changes: -IBUP-1428 PO
[2017-09-17 12:23] LABS: BASO % 0.3 %; BASO ABS # 0.02 K/uL (0-0.2); EOS % 1.8 %; EOS ABS # 0.14 K/uL (0-0.5); HEMOGLOBIN 13.1 g/dL (12.0-16.0); IG# 0.02 K/uL (0.00-0.02); LYMPH ABS # 2.43 K/uL (1.2-3.4); MEAN CELL VOLUME 89.9 fL (80-100); MEAN CORPUSCULAR HEMOGLOBIN 29.4 pg (25-34); MEAN CORPUSCULAR HGB CONC 32.8 g/dl (32-36); MEAN PLATELET VOLUME 8.9 fL (7.4-10.4); MONO % 6.1 %; MONO ABS # 0.48 K/uL (0.11-0.59); NEUT % 60.5 %; NEUT ABS # 4.74 K/uL (1.4-6.5); PLATELET COUNT 236 K/uL (130-400); RED CELL DISTRIBUTION WIDTH CV 14.3 % (11.5-14.5); RED CELL DISTRIBUTION WIDTH SD 47.1 fL (36.4-46.3); WHITE BLOOD COUNT 7.83 K/uL (4.8-10.8)
[2017-09-17 13:09] LABS: HEMOGLOBIN A1C 8.9 % (4.5-5.6)
[2017-09-17 13:11] LABS: ALBUMIN 3.9 gm/dl (3.4-5.0); ALT/SGPT 51 U/L (12-78); AST/SGOT 51 U/L (15-37); BLOOD UREA NITROGEN 16 mg/dl (7-18); CALCIUM 9.7 mg/dl (8.5-10.1); CARBON DIOXIDE 26 mmol/L (21-32); GLUCOSE 230 mg/dl (70-99); POTASSIUM 4.1 mmol/L (3.5-5.1); SODIUM 136 mmol/L (136-145)
[2017-09-17 13:22] LABS: ALKALINE PHOSPHATASE 102 U/L (45-117); CHOLESTEROL 135 mg/dl (0-200); LDL CHOLESTEROL CALCULATED 38 mg/dl; TOTAL PROTEIN 7.4 gm/dl (6.4-8.2)
== END | disposition home or self-care (01) ==
LOC: C.LABMFLN 10:21
PROVIDERS: ATTEND Family Medicine
DX: G25.81 Restless legs syndrome (principal); E78.5 Hyperlipidemia, unspecified; E11.9 Type 2 diabetes mellitus without complications

== ENCOUNTER → 2018-01-28 | Outpatient (CLI) | payer OTHER, BC ==
--- NOTE | 2018-01-29 07:55 | MAMMOGRAPHY REPORT ---
BILATERAL DIGITAL SCREENING MAMMOGRAM TOMOSYNTHESIS WITH CAD: 01/28/2018 CLINICAL HISTORY: Routine screening. Patient has no complaints. TECHNIQUE: The study was acquired using full field digital technology and interpreted from soft copy. Breast tomosynthesis in addition to standard 2D mammography was performed. Current study was also ev aluated with a Computer Aided Detection (CAD) system. COMPARISON: Comparison is made to exams dated: 11/26/2016 mammogram, 11/25/2014 mammogram - [facility], 03/08/2013 mammogram, 09/20/2011 mammogram, and 03/23/2009 mammogram - [facility]. BREAST COMPOSITION: The tissue of both breasts is heterogeneously dense, which may obscure small mass es. FINDINGS: There is a 15 mm focal asymmetry in the upper outer posterior left breast, for which additi onal spot compression tomosynthesis views and possible ultrasound are recommended. There is a stable 13 mm circumscribed mass in the 9:00 anterior right breast, that appears unchanged to decreased in size dating back to at least 2008, therefore considered benign. Stable 8.5 mm circum scribed mass in the lower inner middle one third of the left breast. There are scattered rim calcifi cations and mild vascular calcifications in the breasts. No other suspicious mass, architectural dist ortion or cluster of microcalcifications is seen. IMPRESSION: ACR BI-RADS CATEGORY 0: INCOMPLETE EVALUATION: NEED ADDITIONAL IMAGING EVALUATION The 15 mm focal asymmetry in the upper outer posterior left breast needs additional evaluation. The patient will be called to schedule an appointment. Some breast cancers are not detected with mammography. A negative mammographic report should not luther y biopsy if a clinically suggestive mass is present. Yohana Matias M.D. ay/:01/28/2018 17:00:49 Plant Cytologist: RT Kay(Dylon)(Amari), [facility] letter sent: Addl Imaging 0 BI-RADS Code: ACR BI-RADS Category 0: Incomplete Evaluation: Need Additional Imaging Evaluation
== END | disposition home or self-care (01) ==
LOC: C.MAMM 16:12
PROVIDERS: ATTEND Family Medicine
DX: Z12.31 Encounter for screening mammogram for malignant neoplasm of breast (principal); N64.89 Other specified disorders of breast

== ENCOUNTER → 2018-02-05 | Outpatient (CLI) | payer OTHER, BC ==
--- NOTE | 2018-02-05 14:57 | MAMMOGRAPHY REPORT ---
UNILATERAL LEFT DIGITAL DIAGNOSTIC MAMMOGRAM TOMOSYNTHESIS AND TARGETED LEFT ULTRASOUND: 02/05/2018 CLINICAL HISTORY: Callback from screening mammogram for left breast asymmetry. TECHNIQUE: The study was acquired using full field digital technology and interpreted from soft copy. Breast tomosynthesis in addition to standard 2D mammography was performed. Spot compression left CC and MLO 2D and tomosynthesis images were obtained. COMPARISON: Comparison is made to exams dated: 01/28/2018 mammogram, 11/26/2016 mammogram, 11/25/2014 ammogram - [facility], 03/08/2013 mammogram, 09/20/2011 mammogram, and 03/23/2009 mammo [facility]. BREAST COMPOSITION: The tissue of left breast is heterogeneously dense, which may obscure small merlene s. FINDINGS: Spot compression views demonstrate a persistent mass with obscured margins measuring approximately 16 mm in the left upper outer quadrant, best seen on the tomosynthesis images. Targeted ultrasound was performed of the left upper outer quadrant in the region of the mammographic mass. In the left 2:00 breast, approximately 6 cm from the nipple, there is a circumscribed anechoic mass with posterior acoustic enhancement which measures 1.4 x 1.0 x 1.2 cm. This corresponds with t he mammographic mass and is consistent with a benign simple cyst. An adjacent small benign 5 mm cyst is also noted. IMPRESSION: ACR BI-RADS CATEGORY 2: BENIGN, ULTRASOUND ACR BI-RADS CATEGORY 2: BENIGN Benign 1.4 cm simple cyst in the left 2:00 breast on ultrasound, which corresponds with the mammograp hic mass. There is no mammographic or sonographic evidence of malignancy. A 1 year screening mammogr am is recommended.(02/06/2019) The patient has been verbally notified of the results. Some breast cancers are not detected with mammography. A negative mammographic report should not luther y biopsy if a clinically suggestive mass is present. Staci Romero M.D. ah/:02/05/2018 12:21:55 News Correspondent: RT Rupert(R)(M), [facility] letter sent: Normal / OVERALL STUDY BIRADS: 2 Benign
== END | disposition home or self-care (01) ==
LOC: C.MAMM 10:52
PROVIDERS: ATTEND Family Medicine
DX: R92.8 Other abnormal and inconclusive findings on diagnostic imaging of breast (principal); N64.89 Other specified disorders of breast

== ENCOUNTER → 2018-02-09 | Outpatient (CLI) | payer OTHER, BC | END | disposition home or self-care (01) | LOC: C.LABMFLN 12:28 | PROVIDERS: ATTEND Family Medicine | DX: R30.0 Dysuria (principal); R35.0 Frequency of micturition ==

== ENCOUNTER → 2018-02-19 | Outpatient (CLI) | payer OTHER, BC ==
[~2018-02-19] VITALS: Ht 165.1 cm; Wt 93.9 kg
[2018-02-19 14:07] VITALS: BP 118/75; PULSE 89; Ht 165.1 cm; Wt 93.9 kg
== END | disposition home or self-care (01) ==
LOC: C.NEUR 13:04
PROVIDERS: ATTEND Physician Assistant
DX: G47.33 Obstructive sleep apnea (adult) (pediatric) (principal)

== ENCOUNTER 2021-08-24 05:14 | Observation (INO) ==
--- NOTE | 2021-07-18 14:12 | PAT Medication Instructions ---
Medication Instructions Date of Service July 18, 2021 Home Medications Medication Instructions Recorded Microlet Next Lancing Device kit #1 ea NS 12/28/19 (lancing device with lancets) ferrous sulfate 325 mg (65 mg 325 mg PO BID #60 tab 01/27/20 iron) tablet,delayed release blood sugar diagnostic (Accu-Chek #100 ea 10/06/20 Lora Plus test strp) lancets (Microlet Lancet) #100 ea 10/06/20 blood-glucose meter (Accu-Chek #1 ea 12/13/20 Lora Plus Meter) hydrocortisone 1 % lotion 1 applic TOPICAL BID PRN #120 ml 01/09/21 (Anti-Itch (hydrocortisone)) pen needle, diabetic 32 gauge x #400 ea 02/22/2132" (BD Ultra-Fine Kalee Pen Needle) ropinirole 1 mg tablet 1 mg PO HS #90 tab 07/03/21 Microlet Next Lancing Device kit (lancing device with lancets) ferrous sulfate 325 mg (65 mg iron) tablet,delayed release 325 mg PO BID magnesium oxide,aspartate,citr (Triple Magnesium Complex) 400 mg PO QAM blood sugar diagnostic (Accu-Chek Lora Plus test strp) lancets (Microlet Lancet) #100 ea blood-glucose meter,continuous (Dexcom G6 Disc Sander) blood-glucose sensor (Dexcom G6 Sensor) blood-glucose transmitter (Dexcom G6 Transmitter) blood-glucose meter (Accu-Chek Lora Plus Meter) hydrocortisone 1 % lotion (Anti-Itch (hydrocortisone)) 1 applic TOPICAL BID PRN pen needle, diabetic 32 gauge x /32" (BD Ultra-Fine Kalee Pen Needle) ropinirole 1 mg tablet 1 mg PO HS insulin aspart U-100 100 unit/mL (3 mL) subcutaneous pen (Novolog Flexpen U-100 Insulin aspart) See Rx Instructions SQ AC insulin glargine 100 unit/mL (3 mL) subcutaneous pen (Lantus Solostar U-100 Insulin) 50 unit SQ QPM atorvastatin 40 mg tablet 40 mg PO HS clonazepam 1 mg tablet 1 mg PO DAILY PRN cyanocobalamin (vitamin B-12) 1,000 mcg capsule 1,000 mcg PO QAM metformin 500 mg tablet,extended release 24 hr 1,500 mg PO QAM nystatin 100,000 unit/gram topical cream 1 applic TOPICAL BID PRN pioglitazone 30 mg tablet (Actos) 30 mg PO QAM sertraline 100 mg tablet (Zoloft) 200 mg PO QAM STOP taking 24 hours before surgery ropinirole 1 mg tablet 1 mg PO HS hydrocortisone 1 % lotion (Anti-Itch (hydrocortisone)) 1 applic TOPICAL BID PRN nystatin 100,000 unit/gram topical cream 1 applic TOPICAL BID PRN DO NOT take the morning of surgery ferrous sulfate 325 mg (65 mg iron) tablet,delayed release 325 mg PO BID magnesium oxide,aspartate,citr (Triple Magnesium Complex) 400 mg PO QAM insulin aspart U-100 100 unit/mL (3 mL) subcutaneous pen (Novolog Flexpen U-100 Insulin aspart) See Rx Instructions SQ AC cyanocobalamin (vitamin B-12) 1,000 mcg capsule 1,000 mcg PO QAM metformin 500 mg tablet,extended release 24 hr 1,500 mg PO QAM pioglitazone 30 mg tablet (Actos) 30 mg PO QAM Take morning of surgery With a small sip of water, OTHERWISE NOTHING TO EAT OR DRINK AFTER MIDNIGHT: clonazepam 1 mg tablet 1 mg PO DAILY PRN(if needed) sertraline 100 mg tablet (Zoloft) 200 mg PO QAM Take evening before surgery ferrous sulfate 325 mg (65 mg iron) tablet,delayed release 325 mg PO BID insulin glargine 100 unit/mL (3 mL) subcutaneous pen (Lantus Solostar U-100 Insulin) 50 unit SQ QPM atorvastatin 40 mg tablet 40 mg PO HS Other Notes If you have any questions please call us at [phone] or [phone] or [phone] or [phone]
--- NOTE | 2021-07-20 12:23 | Anesthesiology Consultation ---
Date of Service July 20, 2021 Assessment & Plan (1) Encounter for pre-operative examination: - check BSG am DOS. - chronic dyspnea on exertion: Workload note sent to PCP regarding pre-op optimization and Dr. Barbosa advised she is scheduling patient for dobutamine stress preop. Awaiting dobutamine stress and PCP clearance. - COVID screening: Per assessment on 07/20/2021: Travel screen negative, no known COVID-19 positive contacts or current COVID-19 related symptoms in past 2 weeks. Patient vaccinated. Surgeon arranging preop COVID testing, scheduled 08/22/2021 [place]. Awaiting results. Chart Review Chart Review: Pending: Refer to Additional Notes / Consult section and Patient seen in Pre Admission Testing Teaching & Discussion Pre-Anesthesia Teaching/Discussion Notes: Instructed NPO after midnight before surgery, except medications with 15 cc of water. Medication instructions provided according to the PAT guidelines. History Surgery Operation Date: 08/24/21 12:50 Proposed Procedures p Left Total Knee Arthroplasty - Davi Landon MD Height/Weight Height: 5 ft 6 in Weight: 100 kg Allergies Allergy/AdvReac Type Severity Reaction Status Date / Time adhesive AdvReac Intermediate RASH Verified 07/18/21 11:32 Medications Home Medications Medication Instructions Recorded Confirmed Last Taken Microlet Next Lancing Device kit #1 ea NS 12/28/19 07/11/21 Unknown (lancing device with lancets) ferrous sulfate 325 mg (65 mg 325 mg PO BID #60 tab 01/27/20 07/18/21 Unknown iron) tablet,delayed release magnesium oxide,aspartate,citr 400 mg PO QAM 02/15/20 07/18/21 Unknown (Triple Magnesium Complex) blood sugar diagnostic (Accu-Chek #100 ea 10/06/20 07/11/21 Unknown Lora Plus test strp) lancets (Microlet Lancet) #100 ea 10/06/20 07/11/21 Unknown blood-glucose meter,continuous #1 ea 11/15/20 07/11/21 Unknown (Dexcom G6 Metal Container Maker) blood-glucose sensor (Dexcom G6 #3 ea 11/15/20 07/11/21 Unknown Sensor) blood-glucose transmitter (Dexcom #1 ea 11/15/20 07/11/21 Unknown G6 Transmitter) blood-glucose meter (Accu-Chek #1 ea 12/13/20 07/11/21 Unknown Lora Plus Meter) hydrocortisone 1 % lotion 1 applic TOPICAL BID PRN #120 ml 01/09/21 07/18/21 Unknown (Anti-Itch (hydrocortisone)) pen needle, diabetic 32 gauge x #400 ea 02/22/21 07/11/21 Unknown " (BD Ultra-Fine Kalee Pen Needle) ropinirole 1 mg tablet 1 mg PO HS #90 tab 07/03/21 07/18/21 Unknown insulin aspart U-100 100 unit/mL See Rx Instructions SQ AC ml 07/11/21 07/18/21 Unknown (3 mL) subcutaneous pen (Novolog Flexpen U-100 Insulin aspart) insulin glargine 100 unit/mL (3 50 unit SQ QPM ml 07/11/21 07/18/21 Unknown mL) subcutaneous pen (Lantus Solostar U-100 Insulin) atorvastatin 40 mg tablet 40 mg PO HS 07/18/21 07/18/21 Unknown clonazepam 1 mg tablet 1 mg PO DAILY PRN 07/18/21 07/18/21 Unknown cyanocobalamin (vitamin B-12) 1,000 mcg PO QAM 07/18/21 07/18/21 Unknown 1,000 mcg capsule metformin 500 mg tablet,extended 1,500 mg PO QAM 07/18/21 07/18/21 Unknown release 24 hr nystatin 100,000 unit/gram topical 1 applic TOPICAL BID PRN 07/18/21 07/18/21 Unknown cream pioglitazone 30 mg tablet (Actos) 30 mg PO QAM 07/18/21 07/18/21 Unknown sertraline 100 mg tablet (Zoloft) 200 mg PO QAM 07/18/21 07/18/21 Unknown Wheeled Walker #1 ea 07/20/21 07/20/21 Unknown Past Medical History Medical History (Updated 07/23/21 @ 14:08 by Ebony Barbosa MD) Allergic rhinitis seasonal Anxiety Depression Diabetes mellitus with insulin therapy Diabetic neuropathy Dyspnea on exertion GERD (gastroesophageal reflux disease) history, denies currently History of adenomatous polyp of colon Hyperlipidemia Insomnia Left knee DJD Obstructive sleep apnea cpap-nightly compliance Restless legs syndrome Patient denies h/o stroke, seizures, heart attack, heart failure, HTN, blood clots or blood transfusions. Exercise / Class Metabolic Activity II 4-5 Yardwork/Stairs/Walk up hill (SOB with 1 FOS, ongoing x years, denies change or worsening per pt) Past Family History Family History Father Diabetes Lung cancer Mother Diabetes Coronary heart disease Unknown Asthma Cardiac disorder Denies family history of Ovarian cancer Prostate cancer Myocardial infarction Breast cancer Colorectal cancer Past Surgical History Surgical History History of cataract surgery bilateral S/P arthroscopic knee surgery right knee s/p right TKA S/P cholecystectomy S/P colonoscopy (~04/2017) 04/22/2017 S/P dilatation and curettage S/P eye surgery "lazy eye" bilateral S/P foot surgery left plantar fascitis S/P hysterectomy RAMA/BSO S/P knee replacement Right S/P tonsillectomy S/P trigger finger release S/P tubal ligation Past Anesthesia History No Hx of Anesthesia Complications and No Family Hx of Anesthesia Complications History of PONV No Hx of PONV and No Hx of Motion Sickness Social History Smoking Status: Never smoker Do You Dip or Chew Tobacco: No Hx Alcohol Use: No Hx Substance Use: No Review of Systems Patient denies chest pain, shortness of breath, reflux, fever, chills, cough, wheezing, or palpitations. Physical Exam Vital Signs Vitals BP 118/78 P 84 TEMP 98.7 SP02 96% on RA RESP 16 Physical Full cervical extension range of motion without pain Full TMJ range of motion TMD 3 finger breaths Mallampati Score 3 Dentition: intact, missing teeth-right and left upper back, 4 implants lower front, 4 upper front crowns and chipped front lower; denies loose teeth Lungs: normal respiratory effort. Clear throughout to auscultation, no adventitious breath sounds Cardiac: regular rate and rhythm, no murmurs noted Carotid arteries: negative bruit bilat Extremities: trace pitting edema distal lower extremities bilat; nonerythematous, normal temperature, nontender; chronic per pt without change or worsening Lab Results Anesthesia Preop Results Results Anesthesia Widget: WBC 7.19 K/uL (4.8-10.8) 07/20/21 Hgb 13.9 g/dL (12.0-16.0) 07/20/21 Hct 41.3 % (37-47) 07/20/21 Plt 264 K/uL (130-400) 07/20/21 Na 137 mmol/L (136-145) 07/20/21 K 4.7 mmol/L (3.5-5.1) 07/20/21 Cl 104 mmol/L (98-107) 07/20/21 CO2 28 mmol/L (21-32) 07/20/21 BUN 19 mg/dl (6-23) 07/20/21 Creat 0.83 mg/dl (0.6-1.2) 07/20/21 Glucose Level 129 mg/dl (70-99) H 07/20/21 PT 9.9 Seconds (9.0-12.0) 07/20/21 PTT 27.3 Seconds (21.0-31.0) 07/20/21 INR 1.0 (0.9-1.1) 07/20/21 HA1c 7.8 % (4.5-5.6) H 07/20/21 Blood Type O Positive 07/20/21 Antibody Screen NEGATIVE 07/20/21 Lab Comments: Surgeon's office made aware of A1c. Testing Electrocardiogram Date: 07/20/21 Normal sinus rhythm, rate 78 bpm. Chest X-Ray Date: 07/20/21 FINDINGS: Frontal and lateral radiographs of the chest demonstrate the cardiomediastinal silhouette to be within normal limits. The lungs are clear of alveolar opacities. There is no evidence for effusion bilaterally. There is no evidence for vascular congestion. There is no acute osseous pathology. IMPRESSION: No acute cardiopulmonary disease.
--- NOTE | 2021-08-18 06:20 | History and Physical Report ---
CHIEF COMPLAINT: Persistent progressive left knee pain. HISTORY OF PRESENT ILLNESS: The patient is a 71-year-old female who presents for surgical treatment of her left knee. She has got a long history of left knee pain and discomfort that has gradually got ten worse over time. She describes diffuse pain throughout her knee. The more she is up and on it, the more it hurts. She limps more as the day goes on. She felt it has gotten stiffer. Minimal reli ef with oral medicines. She has also had injections, which provided some temporary relief. She woul d like to proceed with left knee replacement. Of note, the patient does have a history of right knee replacement by Dr. Hernandez 7 years ago. PAST MEDICAL HISTORY: Significant for, 1. Sleep apnea, with CPAP machine. 2. Diabetes x5 years. 3. Obesity, BMI of 36. 4. Low back pain/sciatica. PAST SURGICAL HISTORY: Previous surgeries include, 1. Eye surgery. 2. Tubal ligation. 3. Hysterectomy. 4. Right knee replacement 7 years ago. 5. Cholecystectomy. 6. Foot surgery. 7. Cataract surgery. ALLERGIES: ADHESIVES. CURRENT MEDICATIONS: Include, 1. Atorvastatin 40 mg a day. 2. Clonazepam 1 mg a day. 3. Vitamin B12. 4. Iron sulfate. 5. Insulin. 6. Magnesium oxide. 7. Metformin. 8. Simvastatin. 9. Actos. 10. Ropinirole. 11. Zoloft. SOCIAL HISTORY: A 71-year-old female. She is . Lives by herself. She is planning to go to [place] and staying with her daughter after surgery. FAMILY HISTORY: Noncontributory. REVIEW OF SYSTEMS: Significant for diabetes. Denies any chest pain or shortness of breath. No know n bleeding problems. No history of DVT or PE. PHYSICAL EXAMINATION: GENERAL: Shows a pleasant middle-aged female. She looks to be in reasonably good health. HEENT: Benign. NECK: Supple, no lymphadenopathy. LUNGS: Clear to auscultation. HEART: Has a regular rate and rhythm. ABDOMEN: Soft, nontender, nondistended. EXTREMITIES: Grossly neurovascularly intact except as follows: Examination of the left knee reveale d the patient walks independently. She does have a varus alignment to her knee and she is tender ove r the medial joint line. Small knee effusion. Range of motion is 5-120 degrees. Good straight leg raise. No pain with hip motion. X-RAYS: X-rays of the left knee reviewed. It shows advanced left knee DJD. She has complete loss o f her medial joint space. She has subchondral sclerosis. The right knee replacement looks to be in good position without signs of problems. ASSESSMENT: A 71-year-old white female 7 years out from a right knee replacement done by Dr. Hernandez with left knee degenerative joint disease. She has failed conservative treatment. She has got mult iple other comorbidities including sleep apnea, diabetes, obesity, sciatica, which are all under cont rol. She would like to have her left knee fixed. PLAN: We will take her to the operating room and do a left total knee replacement. The risks and be nefits of this procedure were explained to the patient to include, but not limited to, DVT, PE, , infection, neurological injury, vascular injury, bleeding problem, pain, limited range of motion, s tiffness, failure to relieve her symptoms, incomplete relief of symptoms, need for further surgery in the future, etc. The patient understands and desires to proceed. Informed consent was obtained. The patient knows to hold her metformin on the morning of surgery. She will bring her CPAP machine t o the hospital. She is going to go to [place], [place], postoperatively to recover with her francois rodriguez's assistance. I will be seeing her back 2 weeks postop. The patient did have a stress echo, which showed normal heart function. Rest of the labs are all nor mal. Job ID: [id number]
[2021-08-24] MEDS ORDERED: METOCLOPRAMIDE HCL 10 MG TABLET PO SCH (06:00)
[2021-08-24] MEDS ORDERED: TRANEXAMIC ACID 1,000 MG **IV Intra-op IV SCH (06:00)
[2021-08-24] MEDS ORDERED: LR 500ML BOLUS, THEN 15ML/HR IV SCH (06:00)
[2021-08-24] MEDS ORDERED: ACETAMINOPHEN 500 MG TAB PO SCH (06:00)
[2021-08-24] MEDS ORDERED: ceFAZolin 2000MG 2,000 MG/15 ML SYR IV SCH (06:00)
[2021-08-24] MEDS ORDERED: GABAPENTIN 300 MG CAP PO SCH (06:00)
[2021-08-24] MEDS ORDERED: FAMOTIDINE 20 MG TAB PO SCH (06:00)
[2021-08-24] MEDS ORDERED: LR 60ML/HR IV SCH (06:00)
[2021-08-24] MEDS ORDERED: BUPIVACAINE LIPOSOME/PF 266 MG, BUPIVACAINE/EPINEPHRINE 50 ML, SODIUM CHLORIDE 0.9% 30 ... INFIL SCH (06:00)
[2021-08-24] MEDS ORDERED: PROPOFOL IV EMULSION 10 MG/ML 20 ML VIAL IV ONE ×2 (06:26→08:11)
[2021-08-24] MEDS ORDERED: fentaNYL citrate 100 MCG/2 ML VIAL ONE (06:26)
[2021-08-24] MEDS ORDERED: MIDAZOLAM HCL 1 MG/ML 2ML VIAL ONE ×2 (06:26→06:37)
[2021-08-24] MEDS ORDERED: ROPIVACAINE 0.5% 5 MG/ML 30 ML VIAL ONE (06:29)
[2021-08-24] MEDS ORDERED: LIDOCAINE 2%/EPINEPHRINE 1:200,000 20 ML SDV ONE (06:29)
[2021-08-24] MEDS ORDERED: BUPIVACAINE/EPINEPHRINE 0.25% 1:200,000 30 ML VIAL ONE (06:35)
[2021-08-24] MEDS ORDERED: SODIUM CHLORIDE 0.9% PF 50 ML VIAL ONE (06:36)
[2021-08-24] MEDS ORDERED: BUPIVACAINE LIPOSOME 1.3% 266 MG/20 ML VIAL ONE (06:36)
[2021-08-24] MEDS ORDERED: fentaNYL citrate 100 MCG/2 ML VIAL IV PRN (06:45)
[2021-08-24] MEDS ORDERED: ePHEDrine sulfate 50 MG/ML AMP IV PRN (06:45)
[2021-08-24] MEDS ORDERED: PROMETHAZINE HCL 6.25 MG in SODIUM CHLORIDE 0.9% 50 ML IV PRN (06:45)
[2021-08-24] MEDS ORDERED: ONDANSETRON INJ 2 MG/ML 2 ML VIAL IV PRN ×2 (06:45→18:33)
[2021-08-24] MEDS ORDERED: ATROPINE SULFATE 0.1 MG/ML 10ML SYR IV PRN (06:45)
[2021-08-24] MEDS ORDERED: KETOROLAC 30 MG/ML VIAL IV PRN (06:45)
--- NOTE | 2021-08-24 06:54 | History & Physical Bridge Note ---
Date of Service August 24, 2021 History & Physical Bridge Note I have examined the patient, reviewed the History & Physical and in the interval since the performance of the History & Physical I have noted the following changes of clinical significance: no changes noted
[2021-08-24] MEDS ORDERED: ONDANSETRON INJ 2 MG/ML 2 ML VIAL ONE ×2 (07:15→17:06)
[2021-08-24] MEDS ORDERED: KETOROLAC 30 MG/ML VIAL ONE (07:15)
[2021-08-24] MEDS ORDERED: PHENYLEPHRINE HCL 10 MG/ML VIAL ONE (07:26)
--- NOTE | 2021-08-24 09:04 | Operative Report ---
PG Post Operative Report Pre & Post Diagnosis Operation Date: 08/24/21 07:00 Pre-Op Diagnosis: Left Knee Advanced Degenerative Joint Disease Post-Op Diagnosis: Left Knee Advanced Degenerative Joint Disease I identified the patient and participated in the time-out.: Yes Procedure Operation Date: 08/24/21 07:00 Actual Procedures p Left Total Knee Arthroplasty(Left) - Davi Landon MD Surgeon Davi Ladnon MD Tray Line Supervisor Bandar Irizarry PA-C Estimated Blood Loss 50 Findings Consistent with Post-Op Diagnosis Operative findings revealed advanced left knee DJD. She had grade 4 [id number] disease in all 3 compartments. She had a varus deformity to her knee and about a 10 to 15 degree flexion contracture. Moderate-sized joint effusion. Diffuse osteoporosis. Fluids 1000 cc Specimens Left knee sent for pathology Drains None Anesthesia Type MAC Epidural Complications none Disposition Accompanied Patient To Recovery: No Indications Patient is a 71-year-old female whose had a several year history of increasing left knee pain discomfort. She been through extensive conservative treatment which became less successful over time. X-rays will advanced medial compartment DJD. She also developed significant stiffness in her knee and a flexion contracture about 15 degrees. She elected proceed with total knee arthroplasty. Description of Procedure Operative implants consist of: 1. Biomet Vanguard size 60 left posterior stabilized femoral component. 2. Size 67 tibial tray. 3. 10 mm posterior stabilized polyethylene insert. 4. 28 x 8 all polypatella. The patient was taken to the operating, identified, placed on the operating table supine position protectors were properly padded. IV antibiotics tried by anesthesia team. An epidural anesthetic and been implemented holding area. A left thigh turn was then placed. Left lower extremities then prepped and draped in usual sterile fashion. The left leg was elevated exsanguinated with use of an Esmarch in terms playset 300 mmHg. An anterior approach to the left knee was then performed through longitudinal incision centered over the patella. Sharp dissection got through subcutaneous tissues down to the extensor mechanism. Medial parapatellar arthrotomy incision was made. Some subperiosteal dissection was carried out medially. The fat pad was resected beneath patella tendon. Lateral patellofemoral ligament was released. Patella subluxated laterally and the knee was flexed. The osteophytes were taken off distal femur. The ACL and PCL were then released from the distal femur and the tibia subluxated anteriorly. The external tibial alignment jig was then placed in the interface the tibia and adjusted 14 mm medially. Proximal tibial cut was made remove about 2 mm of bone from the medial side. Some osteophytes taken off medial and posterior medially. The tibia sized to a size 67. We did downsize this a little bit in order to get appropriate rotation of the component. Attention drawn the femur. The distal femur during the sharp drop with intramedullary canal was suction. A left 5 degree valgus cutting guide was placed. Distal femoral cutting block was pinned in place. Distal femoral cut was made to take an additional 3 mm bone off distal femur. The femur was then sized to a size 60. We did downsize this about a half a size. The AP cutting block was pinned parallel to the epicondylar axis which was 5 degrees of external rotation. Anterior cut, anteri or chamfer, posterior cut, posterior chamfer cuts were made. Box cutting guide was placed in the just slight lateral box cut was made. The knee was flexed. The remnants of the medial and lateral menisci were excised. The osteophytes were taken off the posterior aspect the femur. Trial femoral component was placed. The tibial tray was pinned in maximum external rotation and the drill and stem punch used to create defect in proximal tibia. Tibial tray. Knee was then trialed and the 10 mm insert fit most probably. I did leave a little bit loose as I went to make sure she got full extension due to her flexion contracture preoperatively. Attention drawn the patella. The patella was cleaned of all soft tissues. Patella thickness measured 20 mm in thickness was cut down about 12. The lug holes were drilled for the 28 patella. The lateral osteophyte was removed. Patella button was placed. Knee was taken through range of motion and the patella tracked nicely with no thumbs test. Attention drawn to place the permanent components. All trial components were removed. Bone plug was placed in the distal femur limit blood loss was double batch [place] G cement was mixed. A Biomet Vanguard size 60 left posterior stabilized femoral component, size 67 tibial tray, a 10 mm posterior stabilized polyethylene insert, and a 28 x 8 all polypatella then cemented in place. Knee was brought out in full extension total cement hardened. Final cement check was then performed. Pericapsular tissues were injected with total 100 cc of combination of 20 cc of Exparel, 30 cc normal saline, 50 cc of quarter percent Marcaine with epinephrine. Patient did receive 1 g tranexamic acid but the tourniquet was then let down for final turn time 59 minutes. Hemostasis assured use electrocautery. Extensor mechanism then closed with combination 1 PDS suture #1 Vicryl suture in [id number] fashion. Extensor mechanism checked found to be intact and the subcutaneous tissue then closed with 2 Dexon suture in buried fashion skin was closed skin vonda. Leg was then cleaned and dried a sterile dressing was Xeroform, 4 x 4's, sterile cast padding, Thien bandage were applied. Patient then transferred to the recovery room in stable condition. Patient tolerated procedure well and there were no complications. Bandar Irizarry, my physician assistant professor of philosophy, was present for the entire procedure. His assistance was essential and required for appropriate patient positioning, prepping and draping, surgical exposure, performing the technical details of the operation, placement the implants, closure of the wound, and placement of the sterile bandage. I attest to the content of the Intraoperative Record and any orders documented therein. Any exceptions are noted below.
--- NOTE | 2021-08-24 09:27 | XRay Report ---
TWO VIEWS LEFT KNEE CLINICAL HISTORY: Postoperative examination. FINDINGS: AP and crosstable lateral portable views of the left knee are obtained. A left knee arthrop lasty is in near anatomic alignment. There has been undersurface remodeling of the patella. No acute fracture is seen. There are expected postoperative changes around the knee including skin clips, soft tissue edema, and subcutaneous gas. IMPRESSION: Expected postoperative changes status post left knee arthroplasty. No acute fracture is s een. ACT 112: Negative or not required by law. Electronically signed by: Jason Martinez M.D. 08/24/2021 9:26 AM
--- NOTE | 2021-08-24 10:18 | Anesthesiology Progress Note ---
Date of Service August 24, 2021 Anesthesia Post Procedure Vital Signs Vital Signs: Temp Pulse Pulse Resp BP Pulse Ox 08/24/21 10:00 36.8 C 94 H 17 123/75 95 08/24/21 09:50 36.8 C 95 H 18 130/77 93 08/24/21 09:40 91 H 18 148/73 H 95 08/24/21 09:30 93 H 17 132/77 95 08/24/21 09:20 96 H 15 145/70 H 97 08/24/21 09:10 97 H 19 136/71 99 08/24/21 09:00 93 H 13 131/61 98 08/24/21 08:54 36.6 C 96 H 12 127/60 96 08/24/21 05:33 36.7 C 82 20 152/75 H 99 Pain Intensity Left Leg: Pain Intensity: 0 Transfer of Care Handoff Completed per policy Notes Mental Status: alert / awake / arousable Patient Amnestic to Procedure: Yes Nausea / Vomiting: adequately controlled Pain: adequately controlled Airway Patency, RR, SpO2: stable & adequate BP & HR: stable & adequate Hydration State: stable & adequate Anesthetic Complications: no major complications apparent
[2021-08-24] MEDS ORDERED: ceFAZolin 2000MG 2,000 MG/15 ML SYR IV ONE (10:30)
[2021-08-24] MEDS: oxyCODONE/ACETAMINOPHEN 5mg/325mg TAB PO PRN ×2 (10:54→18:01)
[2021-08-24] MEDS ORDERED: PHARMACY GLYCEMIC MGMT CONSULT PRN (18:33)
[2021-08-24] MEDS ORDERED: CARBOHYDRATES FOR HYPOGLYCEMIA PO PRN (18:33)
[2021-08-24] MEDS ORDERED: GLUCOSE 40% GEL 15 GM TUBE PO PRN (18:33)
[2021-08-24] MEDS ORDERED: GLUCAGON FOR INJ 1 MG VIAL SQ PRN (18:33)
[2021-08-24] MEDS ORDERED: bisacodyL 10 MG SUPP PR PRN (18:33)
[2021-08-24] MEDS: SODIUM CHLORIDE 0.9% 1000ML 1,000 ML IV SCH (18:33)
[2021-08-24] MEDS ORDERED: METOCLOPRAMIDE HCL INJ 5 MG/ML 2 ML VIAL IV PRN (18:33)
[2021-08-24] MEDS ORDERED: HYDROCORTISONE 1% CRM 30 GM TUBE EXT PRN (18:33)
[2021-08-24] MEDS ORDERED: oxyCODONE HCL IR 5 MG TAB (IMMEDIATE RELEASE) PO PRN (18:33)
[2021-08-24] MEDS ORDERED: GLUCOSE 10 TABS/TUBE PO PRN (18:33)
[2021-08-24] MEDS ORDERED: ALUMINUM/MAGNESIUM SUSP 30 ML UDC PO PRN (18:33)
[2021-08-24] MEDS ORDERED: DEXTROSE 50% 50 ML SYRINGE IV PRN (18:33)
[2021-08-24] MEDS ORDERED: NALOXONE HCL 0.4 MG/1 ML VIAL/CARP IV PRN (18:33)
[2021-08-24] MEDS ORDERED: MAGNESIUM HYDROXIDE SUSP 30 ML UDC PO PRN (18:33)
--- NOTE | 2021-08-24 19:05 | Progress Notes ---
DATE OF SERVICE: 08/24/2021. SUBJECTIVE: A 71-year-old female postoperative from a left knee replacement. She has been really ki nd of slow to get her leg and the nerve function back from the epidural. Denies any chest pain or sh ortness of breath. Knee pain is manageable. Her leg function is gradually returning, but slowly. OBJECTIVE: VITAL SIGNS: Temperature is 37.0. Vital signs are stable. PHYSICAL EXAMINATION: GENERAL: Shows a pleasant, elderly female. She is sitting up in bed and looks reasonably comfortabl e. Talking to her daughter. LUNGS: Clear to auscultation. HEART: Has a regular rate and rhythm. ABDOMEN: Soft, nontender, nondistended. EXTREMITIES: Grossly neurovascularly intact except as follows: Examination of the left leg reveals the leg to be well aligned. She can dorsiflex and plantarflex her foot, but it is weak. She struggl es doing a straight leg raise. Dressing is clean, dry and intact. Toes are pink with brisk refill. X-RAYS: X-rays of the left knee from recovery room are reviewed. It shows a cemented posterior stab ilized total knee arthroplasty. Components looked to be in good position. No signs of problems. ASSESSMENT: A 71-year-old female postoperative from a left knee replacement. Her legs have been slo w for the nerve function to return. Her pain is controlled. Nerve function is returning. PLAN: DVT prophylaxis includes thigh-high TEDs, SCDs, and aspirin twice a day. She has been seen by PT and OT and they recommended that she stay in the hospital overnight due to her slow nerve functio n return. We will keep her overnight and do therapy in the morning. Hopefully, discharge her in the morning. She will get 24 hours of IV antibiotics. Job ID: [id number]
[2021-08-24] MEDS: ASPIRIN 81 MG ECTAB PO SCH (20:37)
[2021-08-24] MEDS: DOCUSATE SODIUM 100 MG CAP PO SCH (20:38)
[2021-08-24] MEDS: FERROUS SULFATE 325 MG TAB PO SCH (20:38)
[2021-08-24] MEDS: HYDROmorphone INJ 0.5 MG/0.5 ML SYR IV PRN (20:41)
[2021-08-24] MEDS ORDERED: SENNA 8.6 MG TAB PO SCH (21:00)
[2021-08-24] MEDS ORDERED: rOPINIRole HCL 1 MG TABLET PO SCH (21:00)
[2021-08-24] MEDS ORDERED: INSULIN GLARGINE SOLOSTAR 100 UNITS/ML 3 ML PEN SQ SCH (21:00)
[2021-08-24] MEDS ORDERED: ATORVASTATIN 40 MG TAB PO SCH (21:00)
[2021-08-24] MEDS ORDERED: INSULIN GLARGINE SOLOSTAR 100 UNITS/ML 3 ML PEN SC SCH (21:00)
[2021-08-24] MEDS ORDERED: clonazePAM 1 MG TAB PO SCH (21:15)
[2021-08-24] MEDS: ACETAMINOPHEN 500 MG TAB PO SCH (21:41)
[2021-08-24] MEDS: ceFAZolin 2000MG 2,000 MG/15 ML SYR IV SCH (21:41)
[2021-08-24] MEDS: INSULIN ASPART PER UNIT SC SCH (21:42)
[2021-08-24] MEDS ORDERED: TRANEXAMIC ACID / 0.7% NACL 1,000 MG/100 ML BAG IV SCH (22:15)
[2021-08-25] MEDS: KETOROLAC TROMETHAMINE 15 MG/ML VIAL IV SCH ×3 (00:40→12:11)
[2021-08-25] MEDS: HYDROmorphone INJ 0.5 MG/0.5 ML SYR IV PRN (03:38)
[2021-08-25] MEDS: SODIUM CHLORIDE 0.9% 1000ML 1,000 ML IV SCH (05:58)
[2021-08-25] MEDS: ACETAMINOPHEN 500 MG TAB PO SCH ×2 (06:00→13:33)
[2021-08-25 06:01] LABS: Hematocrit (blood only) 32.1 % (37-47); Hemoglobin 10.5 g/dL (12.0-16.0); Mean Corpuscular Hemoglobin 30.1 pg (25-34); Mean Corpuscular Hgb Conc 32.7 g/dL (32-36); Mean Platelet Volume 8.5 fL (7.4-10.4); Platelet Count 167 K/uL (130-400); RDW Coefficient of Variation 14.2 % (11.5-14.5); RDW Standard Deviation 48.2 fL (36.4-46.3); Red Blood Count 3.49 M/uL (4.2-5.4); White Blood Count 8.29 K/uL (4.8-10.8)
[2021-08-25] MEDS: ceFAZolin 2000MG 2,000 MG/15 ML SYR IV SCH (06:01)
[2021-08-25 06:27] LABS: BUN Creatinine Ratio 19.5 (10-20); Calcium 8.4 mg/dl (8.5-10.1); Creatinine Clr Calc Pharmacy 74.8 ml/min; Est GFR (African American) 82.9 ml/min; Est GFR (Non-African American) 71.5 ml/min; Potassium 4.2 mmol/L (3.5-5.1)
--- NOTE | 2021-08-25 08:24 | Progress Notes ---
DATE OF SERVICE: 08/25/2021. SUBJECTIVE: A 71-year-old female postoperative day 1 from a left knee replacement. She is doing magen te a bit better this morning. Her leg is working better. Nausea seems to be improved. OBJECTIVE: VITAL SIGNS: Temperature 36.9. Vital signs are stable. GENERAL: Shows a pleasant, elderly female. She is lying in bed and had to wake her this morning. LUNGS: Clear to auscultation. HEART: Regular rate and rhythm. ABDOMEN: Soft, nontender, nondistended. EXTREMITIES: Grossly neurovascularly intact except as follows. Examination of the left leg reveals the dressing to be clean, dry and intact. She can dorsiflex and plantarflex her foot appropriately. She is neurologically intact. She has got brisk refill. LABORATORY DATA: Hemoglobin 10.5. Hematocrit 32.1. Electrolytes are stable. ASSESSMENT: A 71-year-old white female postoperative day 1 from left knee replacement, doing better. The legs working better. Pain seems to be controlled. She is neurologically intact. PLAN: 1. DVT prophylaxis includes thigh-high TEDs, SCDs, and aspirin twice a day. 2. PT, OT, weightbear as tolerated. Left total knee protocol. 3. Pain control, doing okay with current pain regimen. 4. Disposition: Plan to discharge to home. Her daughter is going to assist in her care and take he r for the next 2 weeks. She will do outpatient therapy. We will see how she does in therapy today. Job ID: [id number]
[2021-08-25] MEDS ORDERED: MAGNESIUM OXIDE ASPARTATE CITR PO SCH (09:00)
[2021-08-25] MEDS ORDERED: MULTIVITAMIN TAB PO SCH (09:00)
[2021-08-25] MEDS ORDERED: [UNRECOGNIZED DRUG - OTHER] PO SCH (09:00)
[2021-08-25] MEDS ORDERED: DOCUSATE SODIUM/SENNA 50/8.6MG TAB PO SCH (09:00)
[2021-08-25] MEDS ORDERED: SERTRALINE HCL 100 MG TABLET PO SCH (09:00)
[2021-08-25] MEDS ORDERED: clonazePAM 1 MG TAB PO SCH (09:00)
[2021-08-25] MEDS: DOCUSATE SODIUM 100 MG CAP PO SCH (09:32)
[2021-08-25] MEDS: FERROUS SULFATE 325 MG TAB PO SCH (09:32)
[2021-08-25] MEDS: ASPIRIN 81 MG ECTAB PO SCH (09:33)
[2021-08-25] MEDS: oxyCODONE HCL IR 5 MG TAB (IMMEDIATE RELEASE) PO PRN ×2 (09:33→13:40)
[2021-08-25] MEDS: INSULIN ASPART PER UNIT SC SCH ×2 (09:39→13:39)
[2021-08-25] MEDS: ONDANSETRON 4 MG OD TAB PO PRN ×2 (10:10→16:10)
--- NOTE | 2021-08-25 12:50 | Pharmacy Report ---
Pharmacy Glycemic Short Note 2 - Date of Service August 25, 2021 - Glycemic Short BSG Results (Last 24 hours): 08/24/21 08/25/21 08/25/21 20:49 05:44 08:16 Glucose 151 H POC Glucose 204 H 176 H 08/25/21 12:11 Glucose POC Glucose 117 H OUTPATIENT ANTIDIABETIC REGIMEN: * Lantus 50 units SC HS * Novolog 11 units TIDM plus SSI (TDD : 40 units) * Metformin 1500 mg PO qAM * Pioglitazone 30 mg PO qAM * HbA1c: 7.8% (07/20/21) ASSESSMENT: * INNA is a 71 year old female, POD #1 s/p left TKA * No intraoperative steroids * BSGs reasonably well-controlled postoperatively (80% of home basal given yes terday) * Do new stressors, do not anticipate any changes to glycemic control * D/c likely in near future PLAN FOR INPATIENT GLYCEMIC CONTROL: * Hold outpatient oral diabetes medications * Basal insulin * Lantus 40-50 units SC HS (see EHR for details) * Bolus insulin * NovoLog per scale ACHS or Q6hrs while NPO * Goal Range: Low 110 mg/dL - High 140 mg/dL * Correction Factor: 20 mg/dL/unit * Nutritional / Prandial insulin per carb ratio of 1 unit per 6 grams CHO consumed P
[2021-08-25] MEDS ORDERED: INSULIN GLARGINE SOLOSTAR 100 UNITS/ML 3 ML PEN SC SCH (21:00)
== END 2021-08-25 16:35 | disposition home or self-care (01) ==
LOC: 3N 05:14 → ASU 05:14